=== PATIENT | female | born 1965 | race Caucasian/White ===

== ENCOUNTER 2016-06-25 07:25 | Inpatient (IN) | payer SELFPAY ==
[~2016-06-25] VITALS: Ht 167.6 cm; Wt 120.4 kg
[~2016-06-25 07:25] MED LIST: ASPI325T4 PO; ATEN25TA PO; DABI150C PO; DOCU-27 PO; LORA1TAB PO; MECL25TA3 PO; METF500T9 PO; MORP30TA83 PO; PARO30TA3 PO; PARO40TA3 PO; POLY17PO5 PO; PROC10TA57 PO; SIMV40TA3 PO; ZOLP10TA PO
[2016-06-25] MEDS ORDERED: FENTANYL PF 100 MCG/2 ML VIAL. IV PRN ×2 (07:45→09:30)
[2016-06-25] MEDS ORDERED: IV NORMAL SALINE 1000ML BAG 1,000 ML IV ONE (07:45)
[2016-06-25] MEDS ORDERED: FENTANYL PF 100 MCG/2 ML VIAL. IV ONE (07:45)
[2016-06-25 08:29] LABS: BASO # 0.1 x10^3/uL (0.0-0.2); BASO % 1 % (0-3); EOS % 2 % (0-3); HEMATOCRIT 41.9 % (36.0-47.0); HEMOGLOBIN 13.9 g/dL (12.0-15.5); LYMPH # 1.6 x10^3/uL (1.0-4.8); LYMPH % 12 % (24-48); MEAN CORPUSCULAR HEMOGLOBIN 28 pg (25-35); MEAN CORPUSCULAR HGB CONC 33 g/dL (31-37); MEAN CORPUSCULAR VOLUME 84 fL (79-100); MONO % 4 % (0-9); NEUT % 81 % (31-73); PLATELET COUNT 363 x10^3/uL (140-400); RED BLOOD COUNT 5.01 x10^6/uL (3.50-5.40); WHITE BLOOD COUNT 13.9 x10^3/uL (4.0-11.0)
[2016-06-25 08:35] LABS: CALCIUM 9.3 mg/dL (8.5-10.1); GFR 58.5; POTASSIUM 4.3 mmol/L (3.5-5.1)
[2016-06-25 08:41] LABS: ALBUMIN 3.9 g/dL (3.4-5.0); ALBUMIN/GLOBULIN RATIO 1.3 (1.0-1.7); TOTAL BILIRUBIN 0.5 mg/dL (0.2-1.0)
--- NOTE | 2016-06-25 08:41 | PHYS DOC ---
Past Medical History Past Medical History: Anxiety, Depression, Diabetes-Type II, DVT, High Cholesterol, Hypertension, Other Additional Past Medical Histor: OSTEOMYELITIS, PE Past Surgical History: No Surgical History, Appendectomy, Other Additional Past Surgical Histo: VEIN ABLATION Alcohol Use: None Drug Use: None Adult General Chief Complaint Chief Complaint: LOWER EXT PAIN HPI HPI Patient is a 51 year old female who drove herself to the emergency department with the complaint of severe pain in the left leg from a chronic wound. The patient has had a history of a chronic wound on the lower left leg, had previously been treated in the wound clinic and had wraps, it had almost healed , she lost her medical insurance and has not been able to follow-up, she recently got a new job and is waiting to get medical insurance again. She has not had follow-up of the wound in some time. It has been worsening and this morning she is having severe pain. She took 800 mg of ibuprofen 4 hours ago and another 800 mg 2 hours ago and it is not helping at all. Patient has been out of her medications due to not having insurance for "a few months". She was previously taking metoprolol 25 mg twice a day, metformin, and Xarelto. Patient has a history of hypertension, diabetes, history of blood clots in both legs and pulmonary emboli. She does have a vena cava filter. The patient's complaint at this time is of severe pain in her left leg wound. The pain has never been this bad before. It's characterized as sharp and stabbing. She's had it for a few days but it is worse this morning. 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 PCP Dr. Ruvalcaba Review of Systems Review of Systems Constitutional: Denies fever or chills [] Eyes: Denies change in visual acuity, redness, or eye pain [] HENT: Denies nasal congestion or sore throat [] Respiratory: Denies cough or shortness of breath [] Cardiovascular: Denies chest pain GI: Denies abdominal pain, nausea, vomiting, bloody stools or diarrhea [] : Denies dysuria or hematuria [] Musculoskeletal: Denies back pain or joint pain [] Integument: As in history of present illness Neurologic: Denies headache, focal weakness or sensory changes [] Current Medications Current Medications Current Medications Medications (Trade) Dose Ordered Sig/Lili Start Time Stop Time Status Last Admin Dose Admin Fentanyl Citrate (Fentanyl 2ml Vial) 50 mcg PRN Q1HR PRN 06/25/16 09:30 06/26/16 09:29 Fentanyl Citrate 100 mcg 100 mcg 1X ONCE 06/25/16 07:45 06/25/16 07:48 DC 06/25/16 07:54 100 MCG Sodium Chloride (Iv Sodium Chloride 0.9% 1000ml Bag) 1,000 ml @ 125 mls/hr 1X ONCE 06/25/16 07:45 06/25/16 15:44 06/25/16 07:52 125 MLS/HR Allergies Allergies Allergies Coded Allergies Type Severity Reaction Last Updated Verified ibuprofen Allergy Severe CAUSES RENAL FAILURE 09/15/15 Yes clindamycin Allergy Intermediate Hives 09/15/15 Yes tramadol Allergy Intermediate Hives 09/15/15 Yes Physical Exam Physical Exam Constitutional: Well developed, well nourished, alert, mentating normally, crying loudly. HENT: Normocephalic, atraumatic, bilateral external ears normal, nose normal. [] Eyes: conjunctiva normal, no discharge. [] Neck: Normal range of motion, no stridor. [] Cardiovascular:Heart rate regular rhythm, no murmur [] Lungs & Thorax: Bilateral breath sounds clear to auscultation [] Abdomen: soft, nondistended, no tenderness, no masses, no pulsatile masses. [] Skin: Warm, dry, no erythema, no rash. [] Extremities: Left lower extremity: On the lateral aspect of the lower leg, just above the ankle, there is a large, deep, chronic-appearing ulcer that is covered with granulation type yellow material and surrounded with a small ring of erythema. It appears to be a chronic ulcer that does not appear acutely cellulitic but is significantly deep. Neurologic: Alert and oriented X 3, normal motor function, normal sensory function, no focal deficits noted. [] Current Patient Data Vital Signs Vital Signs Date Time Temp Pulse Resp B/P Pulse Ox O2 Delivery O2 Flow Rate FiO2 06/25/16 07:32 98.4 117 18 173/116 98 Room Air 98.4 Lab Values Laboratory Tests Test 06/25/16 07:50 White Blood Count 13.9x10^3/uL (4.0-11.0) H Red Blood Count 5.01x10^6/uL (3.50-5.40) Hemoglobin 13.9g/dL (12.0-15.5) Hematocrit 41.9% (36.0-47.0) Mean Corpuscular Volume 84fL (79-100) Mean Corpuscular Hemoglobin 28pg (25-35) Mean Corpuscular Hemoglobin Concent 33g/dL (31-37) Red Cell Distribution Width 15.0% (11.5-14.5) H Platelet Count 363x10^3/uL (140-400) Neutrophils (%) (Auto) 81% (31-73) H Lymphocytes (%) (Auto) 12% (24-48) L Monocytes (%) (Auto) 4% (0-9) Eosinophils (%) (Auto) 2% (0-3) Basophils (%) (Auto) 1% (0-3) Neutrophils # (Auto) 11.3x10^3uL (1.8-7.7) H Lymphocytes # (Auto) 1.6x10^3/uL (1.0-4.8) Monocytes # (Auto) 0.6x10^3/uL (0.0-1.1) Eosinophils # (Auto) 0.3x10^3/uL (0.0-0.7) Basophils # (Auto) 0.1x10^3/uL (0.0-0.2) Sodium Level 142mmol/L (136-145) Potassium Level 4.3mmol/L (3.5-5.1) Chloride Level 105mmol/L (98-107) Carbon Dioxide Level 24mmol/L (21-32) Anion Gap 13 (6-14) Blood Urea Nitrogen 18mg/dL (7-20) Creatinine 1.0mg/dL (0.6-1.0) Estimated GFR (Cockcroft-Gault) 58.5 BUN/Creatinine Ratio 18 (6-20) Glucose Level 117mg/dL (70-99) H Lactic Acid Level 1.3mmol/L (0.4-2.0) Calcium Level 9.3mg/dL (8.5-10.1) Total Bilirubin 0.5mg/dL (0.2-1.0) Aspartate Amino Transferase (AST) 18U/L (15-37) Alanine Aminotransferase (ALT) 21U/L (14-59) Alkaline Phosphatase 64U/L (46-116) Total Protein 7.0g/dL (6.4-8.2) Albumin 3.9g/dL (3.4-5.0) Albumin/Globulin Ratio 1.3 (1.0-1.7) Laboratory Tests 06/25/16 07:50 Laboratory Tests 06/25/16 07:50 EKG EKG [] Radiology/Procedures Radiology/Procedures [] Course & Med Decision Making Course & Med Decision Making Pertinent Labs and Imaging studies reviewed. (See chart for details) 51-year-old female presents with a chronic ulcer to the left lower leg, complaining of severe pain. I discussed with the patient that we will get her pain under control with IV pain medications, but she did drive herself to the ED , and it appears that she will likely need to be admitted but under no circumstances will she be able to drive after ED treatment and she is agreeable to that. IV pain medicines were given, labs obtained. Patient were comfortable after IV fentanyl. White count is a little elevated consistent with inflammation/cellulitis. I discussed with the patient that we need to admit her for wound care and she is agreeable to that. I spoke with Dr. Chavez, water pollution control inspector for hospital medicine. He will admit the patient. I wrote bridge orders. [] Dragon Disclaimer Dragon Disclaimer This electronic medical record was generated, in whole or in part, using a voice recognition dictation system. Departure Departure Impression: Primary Impression: Cellulitis of left leg without foot Additional Impression: Non-pressure chronic ulcer of left calf with fat layer exposed Disposition: ADMITTED INPATIENT Admitting Physician: Stanley Chavez Condition: STABLE Referrals: JESSICA RUVALCABA MD (PCP) Problem Qualifiers ARIAN SIEGEL MD Jun 25, 2016 08:41
--- NOTE | 2016-06-25 09:37 | ACF ---
Admission Forms Criteria CELLULITIS Clinical Indications for Admission to Inpatient Care (Place 'X' for any and all applicable criteria): Admission is indicated for ANY ONE of the following(1)(2)(3)(4)(5): [ ]I. Limb-threatening infection [ ]II. High-risk comorbid condition as indicated by ANY ONE of the following: [ ]a) Uncontrolled diabetes (eg, HbA1c greater than 10% (0.1)) [ ]b) Cirrhosis [ ]c) Neutropenia [ ]d) Asplenia [ ]e) Immunosuppression [ ]f) Symptomatic heart failure [ ]III. Failure of outpatient therapy as indicated by ALL of the following: [ ]a) Progression or no improvement after adequate trial (minimum of 48 hours, with longer period for stable lower extremity infection) [ ]b) Adequate antibiotic regimen as indicated by use of ANY ONE of the following: [ ]i) First-generation cephalosporin (e.g., cephalexin) [ ]ii) Antistaphylococcal penicillin (e.g., dicloxacillin) [ ]iii) Penicillin-allergic patient regimen (clindamycin, extended-spectrum fluoroquinolone, or doxycycline) [ ]iv) Resistant organism (eg, methicillin-resistant Staphylococcus aureus) regimen (6) [ ]c) Outpatient intravenous therapy regimen is not appropriate due to ANY ONE of the following. (7)(8)(9)(10): [ ]i) It was tried and was not successful (eg, progression of infection). [ ]ii) It is not available or cannot be arranged in a clinically appropriate time frame (e.g., the next day). [ ]iii) Clinical presentation (eg, acuity of infection, rapidity of progression, confirmed or suspected bacteremia) is judged to require ALL of the following: [ ]1) Immediate initiation of intravenous therapy ( eg, cannot wait for next day) [ ]2) Intensity of patient monitoring and observation (eg, vital sign measurement, checks for infection progression) that cannot be provided at other than inpatient level of care [ ]IV. Mental status changes [ ]V. Bacteremia [ ]. Hemodynamic instability [ ]VII. Suspected necrotizing soft tissue infection (e.g., gas in tissue)(11)( 12) [ ]VIII. Orbital infection (13)(14) [ ]IX. Associated surgical procedure (e.g., abscess drainage, debridement) not amenable to outpatient, emergency department, or observation care [ ]X. Cutaneous gangrene [ ]XI. High fever (temperature greater than 39.5 degrees C (103.1 degrees F) (oral)) not responsive to outpatient, emergency department, or observation care therapy [x ]XIII. Inpatient admission required rather than observation care (Also use Cellulitis: Observation Care as appropriate) because of ANY ONE of the following : [ ]a) Periorbital or perineal infection that is severe or worsening [x ]b) Severe pain requiring acute inpatient management [ ]c) IV fluid to replace significant ongoing (e.g., for over 24 hours) losses (greater than 3L/m2 per day) [ ]d) Compartment syndrome monitoring (17) [ ]e) Strict or protective (eg, laminar flow) isolation [ ]f) Urgent debridement or skin grafting [ ]g) Bone or joint debridement [ ]h) Immediate inpatient surgery [x ]i) Other condition, treatment or monitoring requiring inpatient admission Extended stay beyond goal length of stay may be needed for (1)(18): [ ]a) Necrotizing soft tissue infection or fasciitis [ ]b) Gram-negative infection [ ]c) Methicillin-resistant Staphylococcal aureus (MRSA) infection [ ]d) Peripheral venous insufficiency with cellulitis [ ]e) Extensive edema [ ]f) Sepsis or continued Hemodynamic instability [ ]g) Continued high fever or mental status change [ ]h) Bacteremia [ ]i) Active serious comorbid conditions ( eg, heart failure, renal insufficiency) The original [email or web address] content created by [email or web address] has been revised. The portions of the content which have been revised are identified through the use of italic text or in bold, and [facility] has neither reviewed nor approved the modified material. All other unmodified content is copyright [facility] [employer] [facility] Please see references footnoted in the original [facility] [employer] edition 2016 Admission Criteria Met?: Yes RENETTA GHOSH Jun 25, 2016 09:37
[2016-06-25] MEDS ORDERED: VANCOMYCIN 1GM IVPB FOR OMNI 250 ML IV ONE (09:45)
[2016-06-25 10:24] VITALS: BP 178/103
[2016-06-25] MEDS: MORPHINE SULFATE 2 MG/ML DISP.SYRIN. IV PRN ×3 (11:06→23:05)
[2016-06-25] MEDS ORDERED: MORPHINE ER 30 MG TABLET.ER PO PRN (13:00)
[2016-06-25] MEDS: POLYETHYLENE GLYCOL 3350 17 GM PACKET. PO SCH (13:00)
--- NOTE | 2016-06-25 14:07 | HP ---
ADMIT DATE: 06/25/2016 CHIEF COMPLAINT: Left lower extremity wound. HISTORY OF PRESENT ILLNESS: The patient is a pleasant middle-aged female who has chronic peripheral vascular disease from her diabetes. Basically, she has got a huge wound on her left calf. It has been occurring for 3 years. She has had multiple procedures and debridements. She initially presented to another facility, they called me from that ER. We have transferred ____ as a direct admit. We are going to be consulting Vascular Surgery and given her some IV antibiotics. PAST MEDICAL HISTORY: Chronic left calf lesion started 3 years ago, anxiety, depression, polypharmacy, diabetes, hyperlipidemia, DVT, hypertension, chronic anticoagulation, osteomyelitis, appendectomy, vein ablation. ALLERGIES: CLINDAMYCIN, IBUPROFEN AND ULTRAM. FAMILY HISTORY: Coronary artery disease. SOCIAL HISTORY: She does not drink, smoke or take drugs. MEDICATIONS: Reviewed, please refer to the MRAD. REVIEW OF SYSTEMS: GENERAL: No history of weight change, weakness or fevers. SKIN: No bruising, hair changes or rashes. EYES: No blurred, double or loss of vision. NOSE AND THROAT: No history of nosebleeds, hoarseness or sore throat. HEART: No history of palpitations, chest pain or shortness of breath on exertion. LUNGS: Denies cough, hemoptysis, wheezing or shortness of breath. GASTROINTESTINAL: Denies changes in appetite, nausea, vomiting, diarrhea or constipation. GENITOURINARY: No history of frequency, urgency, hesitancy or nocturia. NEUROLOGIC: Denies history of numbness, tingling, tremor or weakness. PSYCHIATRIC: No history of panic, anxiety or depression. ENDOCRINE: No history of heat or cold intolerance, polyuria or polydipsia. EXTREMITIES: She complains of left calf wound. PHYSICAL EXAMINATION: VITAL SIGNS: Temperature afebrile, pulse 80, respirations 18, blood pressure 178/103. GENERAL: She is alert, cooperative, very anxious. HEART: Normal S1, S2. LUNGS: Clear. ABDOMEN: Soft, positive bowel sounds, a little obese. EXTREMITIES: The left calf has massive wound. Please see the pictures. ENDOCRINE: No thyromegaly. LYMPHATICS: No cervical nodes. HEMATOPOIETIC: No bruising. VASCULAR: She has slow capillary refill on the left foot. She also has decreased pretibial and pedal pulses. LABORATORY DATA: Pending. ASSESSMENT AND PLAN: Severe peripheral vascular disease with acute on chronic wound of the left calf, very concerned about this. We are going to do some wound care, give her IV antibiotics. Consult Infectious Disease, consult Vascular Surgery, resume her home meds. PROGNOSIS: Guarded. LUISL Terry MARTINO DO DR: SAMUEL/myra JOB#: [id number] / [id number]
[2016-06-25] MEDS: FLUOXETINE HCL 20 MG CAPSULE PO SCH (14:45)
[2016-06-25] MEDS: LORAZEPAM 1 MG TABLET. PO PRN (14:46)
[2016-06-25 15:00] VITALS: BP 180/88
[2016-06-25] MEDS: OXYCODONE/APAP 5/325 TABLET. PO PRN (16:58)
[2016-06-25] MEDS: ASPIRIN 325 MG TABLET PO SCH (17:00)
[2016-06-25] MEDS: DOCUSATE SODIUM 100 MG CAPSULE. PO SCH (17:00)
[2016-06-25] MEDS ORDERED: ANTI-COAG MONITOR BY PHARMACY. MC PRN (18:30)
[2016-06-25] MEDS ORDERED: VANCOMYCIN PER PHARMACY MC PRN (18:30)
--- NOTE | 2016-06-25 18:39 | PDOC ---
Provider Note Provider Note (please see full dictation) 51 yo female with recurrent left leg venous stasis ulcer. She has good distal pulses. Would continue local wound care with Aquacel AG (moistened with saline ) or antibiotic ointment. Would resume external compression. May start ALLY wraps to the left lower leg. She should f/u with the Wound Care Center. ERLIN GONCALVES MD Jun 25, 2016 18:39
[2016-06-25 19:00] VITALS: BP 136/76
[2016-06-25] MEDS ORDERED: VANCOMYCIN 2 GM in IV NORMAL SALINE 500ML BAG 500 ML IV ONE (20:00)
[2016-06-25] MEDS ORDERED: ATENOLOL 25 MG TABLET PO SCH (21:00)
[2016-06-25] MEDS: SIMVASTATIN 40 MG TABLET. PO SCH (21:15)
[2016-06-25] MEDS: DABIGATRAN ETEXILATE 150 MG CAPSULE. PO SCH (21:15)
[2016-06-25] MEDS: TEMAZEPAM 15 MG CAPSULE PO PRN (21:15)
[2016-06-25] MEDS: MORPHINE ER 30 MG TABLET.ER PO SCH (21:16)
[2016-06-25 23:07] VITALS: BP 131/69
[2016-06-26 03:03] VITALS: BP 149/85
[2016-06-26] MEDS: OXYCODONE/APAP 5/325 TABLET. PO PRN ×3 (04:56→15:02)
[2016-06-26 06:33] LABS: BASO # 0.1 x10^3/uL (0.0-0.2); BASO % 1 % (0-3); EOS % 3 % (0-3); HEMATOCRIT 36.1 % (36.0-47.0); HEMOGLOBIN 12.3 g/dL (12.0-15.5); LYMPH # 1.9 x10^3/uL (1.0-4.8); LYMPH % 17 % (24-48); MEAN CORPUSCULAR HEMOGLOBIN 28 pg (25-35); MEAN CORPUSCULAR HGB CONC 34 g/dL (31-37); MEAN CORPUSCULAR VOLUME 83 fL (79-100); MONO % 5 % (0-9); NEUT % 74 % (31-73); PLATELET COUNT 305 x10^3/uL (140-400); RED BLOOD COUNT 4.34 x10^6/uL (3.50-5.40); RED CELL DISTRIBUTION WIDTH 14.9 % (11.5-14.5); WHITE BLOOD COUNT 11.2 x10^3/uL (4.0-11.0)
[2016-06-26 07:00] VITALS: BP 144/85
[2016-06-26 07:08] LABS: CALCIUM 8.7 mg/dL (8.5-10.1); CREATININE 0.7 mg/dL (0.6-1.0); GFR 88.2; POTASSIUM 3.9 mmol/L (3.5-5.1)
[2016-06-26] MEDS ORDERED: VANCOMYCIN 1.75 GM in IV NORMAL SALINE 500ML BAG 500 ML IV SCH (08:00)
--- NOTE | 2016-06-26 08:44 | CONS ---
DATE OF CONSULTATION: 06/25/2016 CHIEF COMPLAINT: Left lower leg wound. HISTORY OF PRESENT ILLNESS: The patient is a 51-year-old female with hypertension, diabetes and history of chronic venous insufficiency, who presents with a recurrent ulcer on the lateral aspect of her left ankle. She has been previously evaluated by ____ and has had previous venous ablations done 1-2 to 2 years ago. She was previously followed through the [facility] and more recently with the [facility]. She saw Dr. Layne as recently as 08/2015. Around that time, the wound improved with an Unna boot compression dressing. Over the last several months, the wound has worsened. She reports that she has been wearing compression stockings. She has not had insurance coverage and subsequently did not follow up at the wound care center. She was admitted recently with worsening of her wound. She notes pain around the wound itself. PAST MEDICAL HISTORY: 1. Chronic venous insufficiency with venous stasis ulcer. 2. Diabetes. 3. Hyperlipidemia. 4. Hypertension. PAST SURGICAL HISTORY: 1. Appendectomy. 2. Previous cad programmer vein ablation by her report. I do not have those reports available. ALLERGIES: CLINDAMYCIN, IBUPROFEN AND ULTRAM. CURRENT MEDICATIONS: Please see detailed medication administration record for dosing details. SOCIAL HISTORY: She denies any smoking or alcohol use. REVIEW OF SYSTEMS: No recent fevers, chills, chest pain or shortness of breath. No nausea, vomiting or other GI symptoms. She has noted some generalized malaise. She denies any unilateral weakness, numbness, visual loss, speech changes, other TIA or stroke type symptoms. PHYSICAL EXAMINATION: GENERAL: This is an obese female in no acute distress. VITAL SIGNS: Temperature 98.1, pulse 92, blood pressure 180/88, respirations 18. NECK: Supple, no lymphadenopathy. CARDIOVASCULAR: Regular rhythm. ABDOMEN: Obese, soft, nontender. EXTREMITIES: She has palpable radial and posterior tibial pulses bilaterally. Her right dorsalis pedis pulses also easily palpable. She has no areas of skin breakdown on her right foot or lower leg. She has a large ulcer on the lateral aspect of her left lower leg with an Aquacel Ag dressing in place. This extends to the deep subcutaneous tissue. There is mild amount of fibrinous debris in this area. Minimal to no surrounding erythema at this time. LABORATORY DATA: Significant for a white blood cell of 13.9, hemoglobin 13.9, platelet count of 363. Sodium 142, potassium 4.3, BUN 18, creatinine 1.0, glucose 117. IMPRESSION: 1. Left lateral lower leg ulcer, most consistent with chronic recurrent venous stasis ulcer. 2. Obesity. 3. Hypertension. RECOMMENDATIONS: 1. I had a long discussion with her as to the etiology of these venous stasis ulcers. She not only needs good local wound care, but also good external compression with leg elevation as much as possible. While in the hospital, I have encouraged her to remain supine with her leg elevated above the level of her heart. She would also benefit from compressive Mayo wrap on her left leg in addition to the topical dressings. 2. Would continue local wound care with Aquacel Ag while in the hospital. She may either continue this as an outpatient or switch to antibiotic ointment and topical dressings. I would encourage her as an outpatient to gently wash the wound with soap and water prior to applying new dressing. 3. Would likely benefit from followup in the Wound Care Center for medicated compression dressing such as an Unna boot or Profore dressing. 4. She may also benefit from reevaluation with comprehensive venous duplex scan. She has had previous ablations, but she might still be a candidate for other interventions. This can wait until she has regained insurance coverage, however. 5. I have given her our contact information. She may follow up with us electively as an outpatient. ERLIN GONCALVES MD DR: TIERA/myra JOB#: [id number] / [id number] JESSICA Kerr MD [facility]
[2016-06-26] MEDS: FLUOXETINE HCL 20 MG CAPSULE PO SCH (09:44)
[2016-06-26] MEDS: DOCUSATE SODIUM 100 MG CAPSULE. PO SCH (09:44)
[2016-06-26] MEDS: ASPIRIN 325 MG TABLET PO SCH (09:45)
[2016-06-26] MEDS: LORAZEPAM 1 MG TABLET. PO PRN (09:45)
[2016-06-26] MEDS: POLYETHYLENE GLYCOL 3350 17 GM PACKET. PO SCH (09:45)
[2016-06-26] MEDS: DABIGATRAN ETEXILATE 150 MG CAPSULE. PO SCH ×2 (09:45→22:42)
[2016-06-26] MEDS: ATENOLOL 25 MG TABLET. PO SCH ×2 (09:45→22:43)
[2016-06-26] MEDS: MORPHINE SULFATE 2 MG/ML DISP.SYRIN. IV PRN (09:50)
[2016-06-26] MEDS: MORPHINE ER 30 MG TABLET.ER PO SCH ×2 (09:51→22:43)
[2016-06-26 11:00] VITALS: BP 149/92
[2016-06-26 15:00] VITALS: BP 145/89
[2016-06-26] MEDS: GABAPENTIN 100 MG CAPSULE. PO SCH ×2 (15:02→22:43)
--- NOTE | 2016-06-26 15:38 | PDOC ---
PROGRESS NOTES Chief Complaint Chief Complaint cc: leg ulcer, pain A/P 1. Left lateral lower leg ulcer,chronic venous ulcer, non healing. 2. Obesity. 3. Hypertension 4. HLP 5. Neuropathy peripheral 6. HX PE Plan Pain control with [place] and Morphine Oral Xarelto Gabapentin for peripheral neuropathy Wound care Vascular surgery Leg elevation Local wound care supportive care . History of Present Illness History of Present Illness pain 5/10, no fever neuropathy Vitals Vitals Vital Signs Date Time Temp Pulse Resp B/P Pulse Ox O2 Delivery O2 Flow Rate FiO2 06/26/16 15:02 Room Air 06/26/16 13:51 94 06/26/16 11:00 97.9 75 18 149/92 97.9 Physical Exam General: Alert, Oriented X3, Cooperative Heart: Normal S1, Normal S2 Lungs: Clear Abdomen: Normal bowel sounds, Soft Extremities: Other (non helaing ulcer) Labs LABS Laboratory Tests Test 06/26/16 06:20 White Blood Count 11.2x10^3/uL (4.0-11.0) Red Blood Count 4.34x10^6/uL (3.50-5.40) Hemoglobin 12.3g/dL (12.0-15.5) Hematocrit 36.1% (36.0-47.0) Mean Corpuscular Volume 83fL (79-100) Mean Corpuscular Hemoglobin 28pg (25-35) Mean Corpuscular Hemoglobin Concent 34g/dL (31-37) Red Cell Distribution Width 14.9% (11.5-14.5) Platelet Count 305x10^3/uL (140-400) Neutrophils (%) (Auto) 74% (31-73) Lymphocytes (%) (Auto) 17% (24-48) Monocytes (%) (Auto) 5% (0-9) Eosinophils (%) (Auto) 3% (0-3) Basophils (%) (Auto) 1% (0-3) Neutrophils # (Auto) 8.3x10^3uL (1.8-7.7) Lymphocytes # (Auto) 1.9x10^3/uL (1.0-4.8) Monocytes # (Auto) 0.6x10^3/uL (0.0-1.1) Eosinophils # (Auto) 0.3x10^3/uL (0.0-0.7) Basophils # (Auto) 0.1x10^3/uL (0.0-0.2) Sodium Level 143mmol/L (136-145) Potassium Level 3.9mmol/L (3.5-5.1) Chloride Level 107mmol/L (98-107) Carbon Dioxide Level 26mmol/L (21-32) Anion Gap 10 (6-14) Blood Urea Nitrogen 15mg/dL (7-20) Creatinine 0.7mg/dL (0.6-1.0) Estimated GFR (Cockcroft-Gault) 88.2 Glucose Level 119mg/dL (70-99) Calcium Level 8.7mg/dL (8.5-10.1) Assessment and Plan Assessmemt and Plan Problems Medical Problems: (1) Cellulitis of left leg without foot Status: Acute (2) Non-pressure chronic ulcer of left calf with fat layer exposed Status: Acute Problems: Comment Review of Relevant I have reviewed the following items claribel (where applicable) has been applied. Labs Laboratory Tests Test 06/25/16 07:50 06/25/16 13:30 06/26/16 06:20 White Blood Count 13.9x10^3/uL (4.0-11.0) 11.2x10^3/uL (4.0-11.0) Red Blood Count 5.01x10^6/uL (3.50-5.40) 4.34x10^6/uL (3.50-5.40) Hemoglobin 13.9g/dL (12.0-15.5) 12.3g/dL (12.0-15.5) Hematocrit 41.9% (36.0-47.0) 36.1% (36.0-47.0) Mean Corpuscular Volume 84fL (79-100) 83fL (79-100) Mean Corpuscular Hemoglobin 28pg (25-35) 28pg (25-35) Mean Corpuscular Hemoglobin Concent 33g/dL (31-37) 34g/dL (31-37) Red Cell Distribution Width 15.0% (11.5-14.5) 14.9% (11.5-14.5) Platelet Count 363x10^3/uL (140-400) 305x10^3/uL (140-400) Neutrophils (%) (Auto) 81% (31-73) 74% (31-73) Lymphocytes (%) (Auto) 12% (24-48) 17% (24-48) Monocytes (%) (Auto) 4% (0-9) 5% (0-9) Eosinophils (%) (Auto) 2% (0-3) 3% (0-3) Basophils (%) (Auto) 1% (0-3) 1% (0-3) Neutrophils # (Auto) 11.3x10^3uL (1.8-7.7) 8.3x10^3uL (1.8-7.7) Lymphocytes # (Auto) 1.6x10^3/uL (1.0-4.8) 1.9x10^3/uL (1.0-4.8) Monocytes # (Auto) 0.6x10^3/uL (0.0-1.1) 0.6x10^3/uL (0.0-1.1) Eosinophils # (Auto) 0.3x10^3/uL (0.0-0.7) 0.3x10^3/uL (0.0-0.7) Basophils # (Auto) 0.1x10^3/uL (0.0-0.2) 0.1x10^3/uL (0.0-0.2) Sodium Level 142mmol/L (136-145) 143mmol/L (136-145) Potassium Level 4.3mmol/L (3.5-5.1) 3.9mmol/L (3.5-5.1) Chloride Level 105mmol/L (98-107) 107mmol/L (98-107) Carbon Dioxide Level 24mmol/L (21-32) 26mmol/L (21-32) Anion Gap 13 (6-14) 10 (6-14) Blood Urea Nitrogen 18mg/dL (7-20) 15mg/dL (7-20) Creatinine 1.0mg/dL (0.6-1.0) 0.7mg/dL (0.6-1.0) Estimated GFR (Cockcroft-Gault) 58.5 88.2 BUN/Creatinine Ratio 18 (6-20) Glucose Level 117mg/dL (70-99) 119mg/dL (70-99) Lactic Acid Level 1.3mmol/L (0.4-2.0) Calcium Level 9.3mg/dL (8.5-10.1) 8.7mg/dL (8.5-10.1) Total Bilirubin 0.5mg/dL (0.2-1.0) Aspartate Amino Transf (AST/SGOT) 18U/L (15-37) Alanine Aminotransferase (ALT/SGPT) 21U/L (14-59) Alkaline Phosphatase 64U/L (46-116) Total Protein 7.0g/dL (6.4-8.2) Albumin 3.9g/dL (3.4-5.0) Albumin/Globulin Ratio 1.3 (1.0-1.7) Nasal Screen MRSA (PCR) Negative (Negative) Laboratory Tests Test 06/26/16 06:20 White Blood Count 11.2x10^3/uL (4.0-11.0) Red Blood Count 4.34x10^6/uL (3.50-5.40) Hemoglobin 12.3g/dL (12.0-15.5) Hematocrit 36.1% (36.0-47.0) Mean Corpuscular Volume 83fL (79-100) Mean Corpuscular Hemoglobin 28pg (25-35) Mean Corpuscular Hemoglobin Concent 34g/dL (31-37) Red Cell Distribution Width 14.9% (11.5-14.5) Platelet Count 305x10^3/uL (140-400) Neutrophils (%) (Auto) 74% (31-73) Lymphocytes (%) (Auto) 17% (24-48) Monocytes (%) (Auto) 5% (0-9) Eosinophils (%) (Auto) 3% (0-3) Basophils (%) (Auto) 1% (0-3) Neutrophils # (Auto) 8.3x10^3uL (1.8-7.7) Lymphocytes # (Auto) 1.9x10^3/uL (1.0-4.8) Monocytes # (Auto) 0.6x10^3/uL (0.0-1.1) Eosinophils # (Auto) 0.3x10^3/uL (0.0-0.7) Basophils # (Auto) 0.1x10^3/uL (0.0-0.2) Sodium Level 143mmol/L (136-145) Potassium Level 3.9mmol/L (3.5-5.1) Chloride Level 107mmol/L (98-107) Carbon Dioxide Level 26mmol/L (21-32) Anion Gap 10 (6-14) Blood Urea Nitrogen 15mg/dL (7-20) Creatinine 0.7mg/dL (0.6-1.0) Estimated GFR (Cockcroft-Gault) 88.2 Glucose Level 119mg/dL (70-99) Calcium Level 8.7mg/dL (8.5-10.1) Microbiology 06/25/16 Blood Culture - Preliminary, Resulted NO GROWTH AFTER 1 DAY 06/25/16 Gram Stain - Final, Complete Medications Current Medications Fentanyl Citrate 100 mcg 100 mcg 1X ONCE IV Last administered on 06/25/16 07: 54; Start 06/25/16 at 07:45; Stop 06/25/16 at 07:48; Status DC Sodium Chloride (Iv Sodium Chloride 0.9% 1000ml Bag) 1,000 ml @ 125 mls/hr 1X ONCE IV Last administered on 06/25/16 07:52; Start 06/25/16 at 07:45; Stop at 15:44; Status DC Fentanyl Citrate (Fentanyl 2ml Vial) 50 mcg PRN Q15MIN PRN IV PAIN GREATER THAN 3/10 Last administered on 06/25/16 09:08; Start 06/25/16 at 07:45; Stop at 07:44; Status DC Fentanyl Citrate 50 mcg 50 mcg PRN Q1HR PRN IV PAIN; Start 06/25/16 at 09:30; Stop 06/26/16 at 09:29; Status DC Vancomycin HCl 250 ml @ 250 mls/hr 1X ONCE IV Last administered on 06/25/16 10:00; Start 06/25/16 at 09:45; Stop 06/25/16 at 10:44; Status DC Morphine Sulfate 4 mg PRN Q3HRS PRN IV PAIN Last administered on 06/26/16 09: 50; Start 06/25/16 at 11:00 Aspirin (Sveta Aspirin) 325 mg DAILY PO Last administered on 06/26/16 09:45; Start 06/25/16 at 13:00 Atenolol (Tenormin) 25 mg BID PO Last administered on 06/25/16 21:17; Start at 21:00; Stop 06/26/16 at 05:23; Status DC Dabigatran (Pradaxa) 150 mg BID PO Last administered on 06/26/16 09:45; Start 06/25/16 at 21:00 Docusate Sodium (Colace) 100 mg DAILY PO Last administered on 06/26/16 09:44; Start 06/25/16 at 13:00 Lorazepam (Ativan) 1 mg PRN TID PRN PO ANXIETY / AGITATION Last administered on 06/26/16 09:45; Start 06/25/16 at 13:00 Morphine Sulfate (Ms Contin) 30 mg TID PRN PO PAIN; Start 06/25/16 at 13:00; Status UNV Polyethylene Glycol (miraLAX PACKET) 17 gm DAILY PO Last administered on 09:45; Start 06/25/16 at 13:00 Simvastatin (Zocor) 40 mg QHS PO Last administered on 06/25/16 21:15; Start at 21:00 Fluoxetine HCl (Prozac) 20 mg DAILY PO Last administered on 06/26/16 09:44; Start 06/25/16 at 13:00 Temazepam (Restoril) 15 mg PRN QHS PRN PO INSOMNIA Last administered on 21:15; Start 06/25/16 at 13:00 Morphine Sulfate (Ms Contin) 30 mg BID PO Last administered on 06/26/16 09:51 ; Start 06/25/16 at 21:00 Oxycodone/ Acetaminophen (Percocet 5/325) 1 tab PRN Q4HRS PRN PO PAIN Last administered on 06/26/16 15:02; Start 06/25/16 at 16:30 Vancomycin HCl 1 each 1 each PRN DAILY PRN MC SEE COMMENTS Last administered on 06/25/16 18:24; Start 06/25/16 at 18:30; Stop 06/26/16 at 09:31; Status DC Vancomycin HCl 2 gm/Sodium Chloride 500 ml @ 250 mls/hr 1X ONCE IV Last administered on 06/25/16 21:15; Start 06/25/16 at 20:00; Stop 06/25/16 at 21:59 ; Status DC Vancomycin HCl/ Sodium Chloride (Iv Sodium Chloride 0.9% 500ml Bag) 500 ml @ 250 mls/hr Q12H IV ; Start 06/26/16 at 08:00; Stop 06/26/16 at 09:31; Status DC Vancomycin HCl 1 each 1X ONCE MC ; Start 06/27/16 at 07:30; Stop 06/27/16 at 07 :30; Status DC Info (Anti-Coagulation Monitoring By Pharmacy) 1 each PRN DAILY PRN MC SEE COMMENTS; Start 06/25/16 at 18:30 Atenolol (Tenormin) 25 mg BID PO Last administered on 06/26/16 09:45; Start at 09:00 Gabapentin (Neurontin) 100 mg TID PO Last administered on 06/26/16 15:02; Start 06/26/16 at 14:00 Active Scripts Active Reported Aspirin 325 Mg Tablet 1 Tab PO DAILY Colace (Docusate Sodium) 100 Mg Capsule 100 Mg PO DAILY Miralax (Polyethylene Glycol 3350) 17 Gm Powd.pack 1 Packet PO DAILY Pradaxa (Dabigatran Etexilate Mesylate) 150 Mg Capsule 1 Cap PO BID Ms Contin (Morphine Sulfate) 30 Mg Tablet.er 1 Tab PO TID PRN Meclizine Hcl 25 Mg Tablet 1 Tab PO TID PRN Compazine (Prochlorperazine Maleate) 10 Mg Tablet 10 Mg PO 1X PRN PRN Ambien (Zolpidem Tartrate) 10 Mg Tablet 1 Tab PO QHS Lorazepam 1 Mg Tablet 1 Tab PO TID PRN Paroxetine Hcl 30 Mg Tablet 2 Tab PO DAILY Simvastatin 40 Mg Tablet 1 Tab PO QHS Atenolol 25 Mg Tablet 1 Tab PO BID Metformin Hcl Er (Metformin Hcl) 500 Mg Tab.er.24h 1 Tab PO BID Vitals/I & O Vital Sign - Last 24 Hours 06/25/16 06/25/16 06/25/16 06/25/16 17:58 19:00 20:00 21:16 Temp 97.9 97.9 Pulse 83 Resp 18 16 B/P 136/76 Pulse Ox 96 98 98 O2 Delivery Room Air Room Air Room Air 3/29/17 3/29/17 3/29/17 3/29/17 21:17 23:05 23:07 23:35 Temp 98.3 98.3 Pulse 83 78 Resp B/P 136/76 131/69 Pulse Ox 94 O2 Delivery Room Air Room Air 06/26/16 06/26/16 06/26/16 06/26/16 03:03 04:56 05:56 07:00 Temp 97.8 97.2 97.8 97.2 Pulse 64 68 Resp B/P 149/85 144/85 Pulse Ox 98 93 O2 Delivery Room Air Room Air Room Air 06/26/16 06/26/16 06/26/16 06/26/16 09:45 09:50 09:51 10:20 Pulse 68 B/P 144/85 Pulse Ox 93 93 O2 Delivery Room Air Room Air Room Air 06/26/16 06/26/16 06/26/16 06/26/16 11:00 12:15 13:51 15:02 Temp 97.9 97.9 Pulse 75 Resp 18 B/P 149/92 Pulse Ox 94 94 O2 Delivery Room Air Room Air Room Air Room Air Intake and Output 06/25/16 06/25/16 06/26/16 15:00 23:00 07:00 Intake Total 1402 ml 720 ml Balance 1402 ml 720 ml LU DRAPER MD Jun 26, 2016 15:38
[2016-06-26 19:39] VITALS: BP 156/91
[2016-06-26] MEDS: SIMVASTATIN 40 MG TABLET. PO SCH (22:42)
[2016-06-26] MEDS: TEMAZEPAM 15 MG CAPSULE PO PRN (22:43)
[2016-06-26 23:17] VITALS: BP 126/79
--- NOTE | 2016-06-27 00:53 | CONS ---
DATE OF CONSULTATION: 06/26/2016 REQUESTING PHYSICIAN: Stanley Chavez DO REASON FOR CONSULTATION: Infected ulcer on the leg. HISTORY OF PRESENT ILLNESS: This is a 51-year-old female with venous insufficiency who has had venous insufficiency ulcer, which was healed and it broke open now for almost 3 years. The patient came in because of the pain in the leg. Denies any fever, denies any nausea, vomiting, diarrhea. Denies any chest pain, shortness of breath, abdominal pain. PAST MEDICAL HISTORY: Positive for venous insufficiency with venous insufficiency ulcer on the left leg. The patient also has depression, diabetes, hyperlipidemia, hypertension, chronic pain problem and has had vein ablation done. SOCIAL HISTORY: Negative for smoking, alcohol or drug use. ALLERGIES: Listed as allergic to CLINDAMYCIN, TRAMADOL AND IBUPROFEN. CURRENT MEDICATIONS: Reviewed. The patient is on vancomycin. REVIEW OF SYSTEMS: As per HPI. All other systems reviewed were negative. PHYSICAL EXAMINATION: GENERAL: Alert, oriented female, not in distress. VITAL SIGNS: Stable, afebrile. HEENT: NAD. NECK: Supple, no JVD, no lymphadenopathy. LUNGS: Clear. CARDIOVASCULAR: S1, S2 regular. ABDOMEN: Benign. EXTREMITIES: Right lower extremity is unremarkable. Left lower extremity has a large venous insufficiency ulcer superficial ulcer present with minimal drainage and minimal surrounding edema. NEUROLOGIC: Intact. LABORATORY DATA: White count is 11.2. BUN and creatinine is normal. Blood culture and wound culture is so far negative. Lower extremity MRI done for some reason, which was negative. IMPRESSION: 1. Venous insufficiency ulcer, left lower extremity. 2. Diabetes. 3. Hypertension. 4. Polypharmacy. Recommend discontinue vancomycin, would use p.o. Augmentin. The patient can be discharged as well as Infectious Disease is concerned. The patient has been given detailed instruction on support stockings, leg elevation and/or Unna boot, etc. that she needs to do and continue to do at the time of transport. Thank you very much, Dr. Chavez for getting me opportunity to participate in this patient's care. PRESLEY SAUCEDO MD DR: MAN/myra JOB#: [id number] / [id number]
[2016-06-27 03:17] VITALS: BP 119/84
[2016-06-27] MEDS: OXYCODONE/APAP 5/325 TABLET. PO PRN ×3 (04:02→13:33)
[2016-06-27 04:59] LABS: BASO # 0.1 x10^3/uL (0.0-0.2); BASO % 1 % (0-3); EOS % 4 % (0-3); HEMATOCRIT 38.8 % (36.0-47.0); HEMOGLOBIN 12.7 g/dL (12.0-15.5); LYMPH # 2.2 x10^3/uL (1.0-4.8); LYMPH % 21 % (24-48); MEAN CORPUSCULAR HEMOGLOBIN 28 pg (25-35); MEAN CORPUSCULAR HGB CONC 33 g/dL (31-37); MEAN CORPUSCULAR VOLUME 86 fL (79-100); MONO % 5 % (0-9); NEUT % 70 % (31-73); PLATELET COUNT 299 x10^3/uL (140-400); RED BLOOD COUNT 4.51 x10^6/uL (3.50-5.40); RED CELL DISTRIBUTION WIDTH 14.8 % (11.5-14.5); WHITE BLOOD COUNT 10.9 x10^3/uL (4.0-11.0)
[2016-06-27 05:25] LABS: CALCIUM 8.8 mg/dL (8.5-10.1); CREATININE 0.8 mg/dL (0.6-1.0); GFR 75.6; POTASSIUM 4.3 mmol/L (3.5-5.1)
[2016-06-27 07:00] VITALS: BP 108/63
[2016-06-27] MEDS ORDERED: FLUOXETINE HCL 20 MG CAPSULE. ONE (08:48)
[2016-06-27] MEDS: ASPIRIN 325 MG TABLET PO SCH (09:04)
[2016-06-27] MEDS: DABIGATRAN ETEXILATE 150 MG CAPSULE. PO SCH (09:04)
[2016-06-27] MEDS: DOCUSATE SODIUM 100 MG CAPSULE. PO SCH (09:04)
[2016-06-27] MEDS: FLUOXETINE HCL 20 MG CAPSULE PO SCH (09:04)
[2016-06-27] MEDS: POLYETHYLENE GLYCOL 3350 17 GM PACKET. PO SCH (09:04)
[2016-06-27] MEDS: GABAPENTIN 100 MG CAPSULE. PO SCH (09:05)
[2016-06-27] MEDS: ATENOLOL 25 MG TABLET. PO SCH (09:05)
[2016-06-27] MEDS: MORPHINE ER 30 MG TABLET.ER PO SCH (09:05)
[2016-06-27 11:00] VITALS: BP 142/113
[2016-06-27] MEDS ORDERED: HYDR-965 PO (11:42)
[2016-06-27] MEDS ORDERED: MORP30TA3 PO (11:42)
[2016-06-27] MEDS ORDERED: GABA-585 PO (11:43)
--- NOTE | 2016-06-30 10:25 | PDOC3 ---
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 Left lateral lower leg ulcer,chronic venous ulcer, non healing. 2. Obesity. 3. Hypertension 4. HLP 5. Neuropathy peripheral 6. HX PE Brief Hospital Course Ms. Chaney is a 51 old female who presented with intractable pain due to left lower extremity non healing venous ulcer, she was evaluated by Dr Ryder and Dr Mullins.Pt recommend to have wound care, leg elevation, unna boots, and compression stocking. Her pain was controlled with IV narcotics, later medications changed to Oral medications. Pt has been sent home in stable condition. Exam GENERAL: No apparent distress. Alert and oriented. HEENT: Head normocephalic, atraumatic. NECK: Supple LUNGS: Clear to auscultation. HEART: RRR, S1, S2 present, pulses intact ABDOMEN: Soft, positive bowel sounds. Disposition/Orders: D/C to Home CONDITION AT DISCHARGE: Stable Diet: Regular Scheduled Aspirin (Aspirin) 1 TAB PO DAILY (Reported) Atenolol (Atenolol) 1 TAB PO BID (Reported) Dabigatran Etexilate Mesylate (Pradaxa) 1 CAP PO BID (Reported) Docusate Sodium (Colace) 100 MG PO DAILY (Reported) Gabapentin (Gabapentin) 100 MG PO TID Metformin Hcl (Metformin Hcl Er) 1 TAB PO BID (Reported) Morphine Sulfate (Morphine Sulfate Er) 30 MG PO BID Paroxetine Hcl (Paroxetine Hcl) 2 TAB PO DAILY (Reported) Polyethylene Glycol 3350 (Miralax) 1 PACKET PO DAILY (Reported) Simvastatin (Simvastatin) 1 TAB PO QHS (Reported) Zolpidem Tartrate (Ambien) 1 TAB PO QHS (Reported) Scheduled PRN Hydrocodone/Apap 7.5-325 ([place] 7.5-325 Tablet) 1 TAB PO PRN BID PRN PRN PAIN Lorazepam (Lorazepam) 1 TAB PO TID PRN PRN ANXIETY / AGITATION (Reported) Meclizine Hcl (Meclizine Hcl) 1 TAB PO TID PRN PRN DIZZINESS (Reported) Morphine Sulfate Er (Ms Contin) 1 TAB PO TID PRN PRN PAIN (Reported) Prochlorperazine Maleate (Compazine) 10 MG PO 1X PRN PRN PRN NAUSEA (Reported) FOLLOW UP APPOINTMENT: with pcp and wound care Time Spent Total time spent with patient 34 minutes for coordination of care, counseling, and education. LU DRAPER MD Jun 30, 2016 10:25
== END 2016-06-27 14:19 | disposition home or self-care (01) | DRG 74 ==
LOC: ER 07:25 → 4 NORTH 09:15
PROVIDERS: ADMIT Internal Medicine; ATTEND Internal Medicine
DX: E11.42 Type 2 diabetes mellitus with diabetic polyneuropathy (principal); Z68.41 Body mass index [BMI] 40.0-44.9, adult; L03.116 Cellulitis of left lower limb; L97.222 Non-pressure chronic ulcer of left calf with fat layer exposed; M86.9 Osteomyelitis, unspecified; L97.929 Non-pressure chronic ulcer of unspecified part of left lower leg with unspecified severity; L97.329 Non-pressure chronic ulcer of left ankle with unspecified severity; R65.10 Systemic inflammatory response syndrome (SIRS) of non-infectious origin without acute organ dysfunction; E11.51 Type 2 diabetes mellitus with diabetic peripheral angiopathy without gangrene; L98.499 Non-pressure chronic ulcer of skin of other sites with unspecified severity; I10 Essential (primary) hypertension; E78.5 Hyperlipidemia, unspecified; E78.00 Pure hypercholesterolemia, unspecified; E66.9 Obesity, unspecified; E11.69 Type 2 diabetes mellitus with other specified complication; E11.622 Type 2 diabetes mellitus with other skin ulcer; F32.9 Major depressive disorder, single episode, unspecified; F41.9 Anxiety disorder, unspecified; I83.008 Varicose veins of unspecified lower extremity with ulcer other part of lower leg; I87.2 Venous insufficiency (chronic) (peripheral); Z88.1 Allergy status to other antibiotic agents; Z79.01 Long term (current) use of anticoagulants; Z79.899 Other long term (current) drug therapy; Z82.49 Family history of ischemic heart disease and other diseases of the circulatory system; Z86.711 Personal history of pulmonary embolism; Z88.5 Allergy status to narcotic agent; Z88.8 Allergy status to other drugs, medicaments and biological substances
CPT/HCPCS: 36415; 80048; 80053; 83605; 85027; 87040; 87071; 87075; 87186; 87205; 87641; 96374; 96375; J2270; J3010; J3370; J7030; J7040; 99285-25

== ENCOUNTER → 2016-08-08 | Outpatient (CLI) | payer SELFPAY ==
[2016-08-06 14:39] VITALS: BP 145/84
[~2016-08-08] MED LIST changes: +ALPR1TAB2 PO; +CARV6.252 PO; +GABA-585 PO; +GABA-586 PO; +HYDR-965 PO; +LEVO750T31 PO; +LISI-334 PO; +MORP30TA3 PO; +OXYC1TAB9 PO; +POLY17PO29 PO; -POLY17PO5 PO; +SULF1TAB24 PO; +ZOLP5TAB PO
== END | disposition home or self-care (01) ==
LOC: PMGWOUND 07:45
PROVIDERS: ATTEND Preventive Medicine Undersea and Hyperbaric Medicine
DX: I87.312 Chronic venous hypertension (idiopathic) with ulcer of left lower extremity (principal); E11.622 Type 2 diabetes mellitus with other skin ulcer; L97.822 Non-pressure chronic ulcer of other part of left lower leg with fat layer exposed; E11.51 Type 2 diabetes mellitus with diabetic peripheral angiopathy without gangrene; F41.9 Anxiety disorder, unspecified; F32.9 Major depressive disorder, single episode, unspecified; I10 Essential (primary) hypertension; E78.5 Hyperlipidemia, unspecified; E66.01 Morbid (severe) obesity due to excess calories; Z68.42 Body mass index [BMI] 45.0-49.9, adult; E11.69 Type 2 diabetes mellitus with other specified complication; M86.9 Osteomyelitis, unspecified; E78.00 Pure hypercholesterolemia, unspecified; Z87.891 Personal history of nicotine dependence; Z72.89 Other problems related to lifestyle; Z86.718 Personal history of other venous thrombosis and embolism; Z86.711 Personal history of pulmonary embolism; Z79.01 Long term (current) use of anticoagulants; Z86.14 Personal history of Methicillin resistant Staphylococcus aureus infection
CPT/HCPCS: 29581; 97597; 97598

== ENCOUNTER → 2016-08-11 | Outpatient (CLI) | payer SELFPAY ==
[2016-08-06 14:39] VITALS: BP 145/84
== END | disposition home or self-care (01) ==
LOC: PMGWOUND 09:38
PROVIDERS: ATTEND Emergency Medicine Undersea and Hyperbaric Medicine
DX: I87.312 Chronic venous hypertension (idiopathic) with ulcer of left lower extremity (principal); E11.622 Type 2 diabetes mellitus with other skin ulcer; L97.821 Non-pressure chronic ulcer of other part of left lower leg limited to breakdown of skin; E11.51 Type 2 diabetes mellitus with diabetic peripheral angiopathy without gangrene; F41.9 Anxiety disorder, unspecified; F32.9 Major depressive disorder, single episode, unspecified; E78.5 Hyperlipidemia, unspecified; Z86.711 Personal history of pulmonary embolism; Z86.718 Personal history of other venous thrombosis and embolism; Z87.891 Personal history of nicotine dependence; Z72.89 Other problems related to lifestyle
CPT/HCPCS: 29581

== ENCOUNTER → 2016-08-15 | Outpatient (CLI) | payer SELFPAY ==
[2016-08-06 14:39] VITALS: BP 145/84
== END | disposition home or self-care (01) ==
LOC: PMGWOUND 09:44
PROVIDERS: ATTEND Emergency Medicine Undersea and Hyperbaric Medicine
DX: I87.312 Chronic venous hypertension (idiopathic) with ulcer of left lower extremity (principal); E11.622 Type 2 diabetes mellitus with other skin ulcer; L97.821 Non-pressure chronic ulcer of other part of left lower leg limited to breakdown of skin; F41.9 Anxiety disorder, unspecified; E78.5 Hyperlipidemia, unspecified; F32.9 Major depressive disorder, single episode, unspecified; E11.51 Type 2 diabetes mellitus with diabetic peripheral angiopathy without gangrene; E66.01 Morbid (severe) obesity due to excess calories; Z68.42 Body mass index [BMI] 45.0-49.9, adult; E78.00 Pure hypercholesterolemia, unspecified; E11.69 Type 2 diabetes mellitus with other specified complication; M86.9 Osteomyelitis, unspecified; Z79.01 Long term (current) use of anticoagulants; Z72.89 Other problems related to lifestyle; Z87.891 Personal history of nicotine dependence; Z86.718 Personal history of other venous thrombosis and embolism; Z86.711 Personal history of pulmonary embolism; Z86.14 Personal history of Methicillin resistant Staphylococcus aureus infection
CPT/HCPCS: 29581; 97597; 97598

== ENCOUNTER → 2016-08-19 | Outpatient (CLI) | payer SELFPAY ==
[2016-08-06 14:39] VITALS: BP 145/84
== END | disposition home or self-care (01) ==
LOC: PMGWOUND 09:34
PROVIDERS: ATTEND Emergency Medicine Undersea and Hyperbaric Medicine
DX: I87.312 Chronic venous hypertension (idiopathic) with ulcer of left lower extremity (principal); E11.622 Type 2 diabetes mellitus with other skin ulcer; L97.821 Non-pressure chronic ulcer of other part of left lower leg limited to breakdown of skin; F41.9 Anxiety disorder, unspecified; F32.9 Major depressive disorder, single episode, unspecified; E78.5 Hyperlipidemia, unspecified; E66.01 Morbid (severe) obesity due to excess calories; Z68.42 Body mass index [BMI] 45.0-49.9, adult; E11.51 Type 2 diabetes mellitus with diabetic peripheral angiopathy without gangrene; Z79.01 Long term (current) use of anticoagulants; Z72.89 Other problems related to lifestyle; Z86.14 Personal history of Methicillin resistant Staphylococcus aureus infection; Z86.711 Personal history of pulmonary embolism; Z86.718 Personal history of other venous thrombosis and embolism; Z87.891 Personal history of nicotine dependence
CPT/HCPCS: 29581

== ENCOUNTER → 2016-08-22 | Outpatient (CLI) | payer SELFPAY ==
[2016-08-06 14:39] VITALS: BP 145/84
== END | disposition home or self-care (01) ==
LOC: PMGWOUND 09:32
PROVIDERS: ATTEND Preventive Medicine Undersea and Hyperbaric Medicine
DX: I87.312 Chronic venous hypertension (idiopathic) with ulcer of left lower extremity (principal); L97.821 Non-pressure chronic ulcer of other part of left lower leg limited to breakdown of skin; E11.51 Type 2 diabetes mellitus with diabetic peripheral angiopathy without gangrene; F41.9 Anxiety disorder, unspecified; F32.9 Major depressive disorder, single episode, unspecified; E78.5 Hyperlipidemia, unspecified; Z86.711 Personal history of pulmonary embolism; Z86.718 Personal history of other venous thrombosis and embolism; Z87.891 Personal history of nicotine dependence; Z72.89 Other problems related to lifestyle
CPT/HCPCS: 97597; 97598

== ENCOUNTER → 2016-08-26 | Outpatient (CLI) | payer SELFPAY ==
[2016-08-06 14:39] VITALS: BP 145/84
== END | disposition home or self-care (01) ==
LOC: PMGWOUND 08:23
PROVIDERS: ATTEND Emergency Medicine Undersea and Hyperbaric Medicine
DX: E11.622 Type 2 diabetes mellitus with other skin ulcer (principal); L98.492 Non-pressure chronic ulcer of skin of other sites with fat layer exposed; E11.51 Type 2 diabetes mellitus with diabetic peripheral angiopathy without gangrene; F41.9 Anxiety disorder, unspecified; F32.9 Major depressive disorder, single episode, unspecified; E78.5 Hyperlipidemia, unspecified; E66.01 Morbid (severe) obesity due to excess calories; Z68.42 Body mass index [BMI] 45.0-49.9, adult; E11.69 Type 2 diabetes mellitus with other specified complication; M86.9 Osteomyelitis, unspecified; E78.00 Pure hypercholesterolemia, unspecified; Z86.718 Personal history of other venous thrombosis and embolism; Z86.711 Personal history of pulmonary embolism; Z72.89 Other problems related to lifestyle; Z87.891 Personal history of nicotine dependence; Z79.01 Long term (current) use of anticoagulants; Z86.14 Personal history of Methicillin resistant Staphylococcus aureus infection
CPT/HCPCS: 29581

== ENCOUNTER → 2016-08-29 | Outpatient (CLI) | payer SELFPAY ==
[2016-08-06 14:39] VITALS: BP 145/84
== END | disposition home or self-care (01) ==
LOC: PMGWOUND 09:48
PROVIDERS: ATTEND Preventive Medicine Undersea and Hyperbaric Medicine
DX: I87.312 Chronic venous hypertension (idiopathic) with ulcer of left lower extremity (principal); L97.822 Non-pressure chronic ulcer of other part of left lower leg with fat layer exposed; F41.9 Anxiety disorder, unspecified; E78.5 Hyperlipidemia, unspecified; F32.9 Major depressive disorder, single episode, unspecified; E66.01 Morbid (severe) obesity due to excess calories; Z68.42 Body mass index [BMI] 45.0-49.9, adult; E78.00 Pure hypercholesterolemia, unspecified; E11.51 Type 2 diabetes mellitus with diabetic peripheral angiopathy without gangrene; E11.69 Type 2 diabetes mellitus with other specified complication; M86.9 Osteomyelitis, unspecified; Z72.89 Other problems related to lifestyle; Z86.14 Personal history of Methicillin resistant Staphylococcus aureus infection; Z87.891 Personal history of nicotine dependence; Z86.718 Personal history of other venous thrombosis and embolism; Z86.711 Personal history of pulmonary embolism; Z79.01 Long term (current) use of anticoagulants
CPT/HCPCS: 29581; 97597; 97598

== ENCOUNTER → 2016-09-02 | Outpatient (CLI) | payer SELFPAY ==
[2016-08-06 14:39] VITALS: BP 145/84
== END | disposition home or self-care (01) ==
LOC: PMGWOUND 10:40
PROVIDERS: ATTEND Emergency Medicine Undersea and Hyperbaric Medicine
DX: I87.312 Chronic venous hypertension (idiopathic) with ulcer of left lower extremity (principal); L97.822 Non-pressure chronic ulcer of other part of left lower leg with fat layer exposed; F41.9 Anxiety disorder, unspecified; E78.5 Hyperlipidemia, unspecified; F32.9 Major depressive disorder, single episode, unspecified; E66.01 Morbid (severe) obesity due to excess calories; Z68.42 Body mass index [BMI] 45.0-49.9, adult; E78.00 Pure hypercholesterolemia, unspecified; E11.69 Type 2 diabetes mellitus with other specified complication; M86.9 Osteomyelitis, unspecified; E11.51 Type 2 diabetes mellitus with diabetic peripheral angiopathy without gangrene; Z86.711 Personal history of pulmonary embolism; Z79.01 Long term (current) use of anticoagulants; Z87.891 Personal history of nicotine dependence; Z86.14 Personal history of Methicillin resistant Staphylococcus aureus infection; Z86.718 Personal history of other venous thrombosis and embolism; Z72.89 Other problems related to lifestyle
CPT/HCPCS: 29581

== ENCOUNTER → 2016-09-05 | Outpatient (CLI) | payer SELFPAY ==
[2016-08-06 14:39] VITALS: BP 145/84
[~2016-09-05] MED LIST changes: -ASPI325T4 PO; +ASPI325T8 PO; +DOCU-109 PO; -DOCU-27 PO
== END | disposition home or self-care (01) ==
LOC: PMGWOUND 10:03
PROVIDERS: ATTEND Preventive Medicine Undersea and Hyperbaric Medicine
DX: I87.312 Chronic venous hypertension (idiopathic) with ulcer of left lower extremity (principal); E11.622 Type 2 diabetes mellitus with other skin ulcer; L97.822 Non-pressure chronic ulcer of other part of left lower leg with fat layer exposed; E11.51 Type 2 diabetes mellitus with diabetic peripheral angiopathy without gangrene; F41.9 Anxiety disorder, unspecified; F32.9 Major depressive disorder, single episode, unspecified; I10 Essential (primary) hypertension; E78.5 Hyperlipidemia, unspecified; Z86.718 Personal history of other venous thrombosis and embolism; Z86.711 Personal history of pulmonary embolism; Z87.891 Personal history of nicotine dependence; Z72.89 Other problems related to lifestyle
CPT/HCPCS: 29581

== ENCOUNTER → 2016-09-09 | Outpatient (CLI) | payer SELFPAY ==
[2016-08-06 14:39] VITALS: BP 145/84
== END | disposition home or self-care (01) ==
LOC: PMGWOUND 11:56
PROVIDERS: ATTEND Preventive Medicine Undersea and Hyperbaric Medicine
DX: I87.312 Chronic venous hypertension (idiopathic) with ulcer of left lower extremity (principal); E11.622 Type 2 diabetes mellitus with other skin ulcer; L97.822 Non-pressure chronic ulcer of other part of left lower leg with fat layer exposed; E11.51 Type 2 diabetes mellitus with diabetic peripheral angiopathy without gangrene; F41.9 Anxiety disorder, unspecified; F32.9 Major depressive disorder, single episode, unspecified; I10 Essential (primary) hypertension; E78.5 Hyperlipidemia, unspecified; E66.01 Morbid (severe) obesity due to excess calories; Z68.42 Body mass index [BMI] 45.0-49.9, adult; E78.00 Pure hypercholesterolemia, unspecified; E11.69 Type 2 diabetes mellitus with other specified complication; M86.9 Osteomyelitis, unspecified; Z86.711 Personal history of pulmonary embolism; Z72.89 Other problems related to lifestyle; Z79.01 Long term (current) use of anticoagulants; Z86.14 Personal history of Methicillin resistant Staphylococcus aureus infection; Z86.718 Personal history of other venous thrombosis and embolism; Z87.891 Personal history of nicotine dependence
CPT/HCPCS: 29581

== ENCOUNTER → 2016-09-12 | Outpatient (CLI) | payer SELFPAY ==
[2016-08-06 14:39] VITALS: BP 145/84
== END | disposition home or self-care (01) ==
LOC: PMGWOUND 09:54
PROVIDERS: ATTEND Preventive Medicine Undersea and Hyperbaric Medicine
DX: I87.312 Chronic venous hypertension (idiopathic) with ulcer of left lower extremity (principal); L97.821 Non-pressure chronic ulcer of other part of left lower leg limited to breakdown of skin; F41.9 Anxiety disorder, unspecified; I10 Essential (primary) hypertension; E78.5 Hyperlipidemia, unspecified; F32.9 Major depressive disorder, single episode, unspecified; E11.51 Type 2 diabetes mellitus with diabetic peripheral angiopathy without gangrene; E78.00 Pure hypercholesterolemia, unspecified; E66.01 Morbid (severe) obesity due to excess calories; Z68.42 Body mass index [BMI] 45.0-49.9, adult; Z86.14 Personal history of Methicillin resistant Staphylococcus aureus infection; Z87.891 Personal history of nicotine dependence; Z86.718 Personal history of other venous thrombosis and embolism; Z86.711 Personal history of pulmonary embolism; Z79.01 Long term (current) use of anticoagulants; Z72.89 Other problems related to lifestyle
CPT/HCPCS: 29581

== ENCOUNTER → 2016-09-17 | Outpatient (CLI) | payer SELFPAY ==
[2016-08-06 14:39] VITALS: BP 145/84
== END | disposition home or self-care (01) ==
LOC: PMGWOUND 09:54
PROVIDERS: ATTEND Preventive Medicine Undersea and Hyperbaric Medicine
DX: I87.312 Chronic venous hypertension (idiopathic) with ulcer of left lower extremity (principal); E11.622 Type 2 diabetes mellitus with other skin ulcer; L97.822 Non-pressure chronic ulcer of other part of left lower leg with fat layer exposed; F41.9 Anxiety disorder, unspecified; E78.5 Hyperlipidemia, unspecified; F32.9 Major depressive disorder, single episode, unspecified; E66.01 Morbid (severe) obesity due to excess calories; Z68.42 Body mass index [BMI] 45.0-49.9, adult; E78.00 Pure hypercholesterolemia, unspecified; E11.51 Type 2 diabetes mellitus with diabetic peripheral angiopathy without gangrene; E11.69 Type 2 diabetes mellitus with other specified complication; M86.9 Osteomyelitis, unspecified; Z86.711 Personal history of pulmonary embolism; Z86.718 Personal history of other venous thrombosis and embolism; Z79.01 Long term (current) use of anticoagulants; Z72.89 Other problems related to lifestyle; Z86.14 Personal history of Methicillin resistant Staphylococcus aureus infection; Z87.891 Personal history of nicotine dependence
CPT/HCPCS: 29581

== ENCOUNTER → 2016-09-24 | Outpatient (CLI) | payer SELFPAY ==
[2016-08-06 14:39] VITALS: BP 145/84
== END | disposition home or self-care (01) ==
LOC: PMGWOUND 09:49
PROVIDERS: ATTEND Preventive Medicine Undersea and Hyperbaric Medicine
DX: I87.312 Chronic venous hypertension (idiopathic) with ulcer of left lower extremity (principal); L97.822 Non-pressure chronic ulcer of other part of left lower leg with fat layer exposed; F41.9 Anxiety disorder, unspecified; I10 Essential (primary) hypertension; E78.5 Hyperlipidemia, unspecified; F32.9 Major depressive disorder, single episode, unspecified; E11.51 Type 2 diabetes mellitus with diabetic peripheral angiopathy without gangrene; E78.00 Pure hypercholesterolemia, unspecified; E66.01 Morbid (severe) obesity due to excess calories; Z68.42 Body mass index [BMI] 45.0-49.9, adult; Z72.89 Other problems related to lifestyle; Z86.14 Personal history of Methicillin resistant Staphylococcus aureus infection; Z87.891 Personal history of nicotine dependence; Z86.718 Personal history of other venous thrombosis and embolism; Z86.711 Personal history of pulmonary embolism; Z79.01 Long term (current) use of anticoagulants
CPT/HCPCS: 29581

== ENCOUNTER → 2016-10-03 | Outpatient (CLI) | payer SELFPAY ==
[2016-08-06 14:39] VITALS: BP 145/84
== END | disposition home or self-care (01) ==
LOC: PMGWOUND 11:58
PROVIDERS: ATTEND Preventive Medicine Undersea and Hyperbaric Medicine
DX: I87.312 Chronic venous hypertension (idiopathic) with ulcer of left lower extremity (principal); E11.622 Type 2 diabetes mellitus with other skin ulcer; L97.822 Non-pressure chronic ulcer of other part of left lower leg with fat layer exposed; E11.51 Type 2 diabetes mellitus with diabetic peripheral angiopathy without gangrene; F41.9 Anxiety disorder, unspecified; F32.9 Major depressive disorder, single episode, unspecified; E78.5 Hyperlipidemia, unspecified; E78.00 Pure hypercholesterolemia, unspecified; E11.69 Type 2 diabetes mellitus with other specified complication; M86.68 Other chronic osteomyelitis, other site; E66.01 Morbid (severe) obesity due to excess calories; Z68.42 Body mass index [BMI] 45.0-49.9, adult; Z87.891 Personal history of nicotine dependence; Z86.718 Personal history of other venous thrombosis and embolism; Z86.711 Personal history of pulmonary embolism; Z72.89 Other problems related to lifestyle; Z86.14 Personal history of Methicillin resistant Staphylococcus aureus infection
CPT/HCPCS: 29581

== ENCOUNTER → 2016-10-08 | Outpatient (CLI) | payer SELFPAY ==
[2016-08-06 14:39] VITALS: BP 145/84
== END | disposition home or self-care (01) ==
LOC: PMGWOUND 10:10
PROVIDERS: ATTEND Preventive Medicine Undersea and Hyperbaric Medicine
DX: I87.312 Chronic venous hypertension (idiopathic) with ulcer of left lower extremity (principal); L97.822 Non-pressure chronic ulcer of other part of left lower leg with fat layer exposed; F41.9 Anxiety disorder, unspecified; E78.5 Hyperlipidemia, unspecified; I10 Essential (primary) hypertension; F32.9 Major depressive disorder, single episode, unspecified; E66.01 Morbid (severe) obesity due to excess calories; E11.69 Type 2 diabetes mellitus with other specified complication; M86.68 Other chronic osteomyelitis, other site; E11.51 Type 2 diabetes mellitus with diabetic peripheral angiopathy without gangrene; E78.00 Pure hypercholesterolemia, unspecified; Z86.14 Personal history of Methicillin resistant Staphylococcus aureus infection; Z86.718 Personal history of other venous thrombosis and embolism; Z86.711 Personal history of pulmonary embolism; Z68.42 Body mass index [BMI] 45.0-49.9, adult; Z79.01 Long term (current) use of anticoagulants; Z87.891 Personal history of nicotine dependence; Z72.89 Other problems related to lifestyle
CPT/HCPCS: 99214

== ENCOUNTER → 2016-10-30 | Outpatient (CLI) | payer SELFPAY ==
[2016-08-06 14:39] VITALS: BP 145/84
== END | disposition home or self-care (01) ==
LOC: PMGWOUND 10:20
PROVIDERS: ATTEND Emergency Medicine Undersea and Hyperbaric Medicine
DX: I87.312 Chronic venous hypertension (idiopathic) with ulcer of left lower extremity (principal); E11.622 Type 2 diabetes mellitus with other skin ulcer; L97.821 Non-pressure chronic ulcer of other part of left lower leg limited to breakdown of skin; E11.51 Type 2 diabetes mellitus with diabetic peripheral angiopathy without gangrene; F41.9 Anxiety disorder, unspecified; F32.9 Major depressive disorder, single episode, unspecified; E78.5 Hyperlipidemia, unspecified; I10 Essential (primary) hypertension; M86.8X8 Other osteomyelitis, other site; E11.69 Type 2 diabetes mellitus with other specified complication; E66.01 Morbid (severe) obesity due to excess calories; E78.00 Pure hypercholesterolemia, unspecified; Z86.718 Personal history of other venous thrombosis and embolism; Z86.711 Personal history of pulmonary embolism; Z87.891 Personal history of nicotine dependence; Z72.89 Other problems related to lifestyle; Z68.42 Body mass index [BMI] 45.0-49.9, adult; Z86.14 Personal history of Methicillin resistant Staphylococcus aureus infection
CPT/HCPCS: 29581; 97597; 97598

== ENCOUNTER 2016-12-19 12:40 | Inpatient (IN) | payer SELFPAY ==
[~2016-12-19] VITALS: Ht 167.6 cm; Wt 117.5 kg
[~2016-12-19 12:40] MED LIST changes: -AMOX250C PO; -APIX5TAB PO; -ASCO500T3 PO; -DOXY100T PO; -METO25TA4 PO; -MULT1TAB52 PO
[2016-12-19] MEDS ORDERED: IV NORMAL SALINE 1000ML BAG 1,000 ML IV SCH (13:33)
[2016-12-19 14:32] LABS: BASO # 0.1 x10^3/uL (0.0-0.2); BASO % 1 % (0-3); EOS % 2 % (0-3); HEMATOCRIT 35.5 % (36.0-47.0); LYMPH # 1.6 x10^3/uL (1.0-4.8); LYMPH % 21 % (24-48); MEAN CORPUSCULAR HEMOGLOBIN 29 pg (25-35); MEAN CORPUSCULAR HGB CONC 34 g/dL (31-37); MEAN CORPUSCULAR VOLUME 86 fL (79-100); MONO % 7 % (0-9); NEUT % 70 % (31-73); PLATELET COUNT 272 x10^3/uL (140-400); RED BLOOD COUNT 4.16 x10^6/uL (3.50-5.40); RED CELL DISTRIBUTION WIDTH 15.1 % (11.5-14.5)
[2016-12-19 14:43] LABS: CALCIUM 9.3 mg/dL (8.5-10.1); CREATININE 1.1 mg/dL (0.6-1.0); GFR 52.4; POTASSIUM 3.8 mmol/L (3.5-5.1)
[2016-12-19] MEDS ORDERED: ONDANSETRON PF 4 MG/2 ML VIAL. IV PRN (14:45)
[2016-12-19] MEDS: IV NORMAL SALINE 1000ML BAG 1,000 ML IV SCH (14:45)
[2016-12-19] MEDS ORDERED: ACETAMINOPHEN 325 MG TABLET. PO PRN (14:45)
--- NOTE | 2016-12-19 14:45 | PHYS DOC ---
Past Medical History Past Medical History: Anxiety, Depression, Diabetes-Type II, DVT, High Cholesterol, Hypertension, Other Additional Past Medical Histor: OSTEOMYELITIS, PE; chronic veinous stasis; PVD Past Surgical History: Appendectomy, Other Additional Past Surgical Histo: VEIN ABLATION; vertical sleeve gastrectomy; blood clot removal;vena cava fi Alcohol Use: Rarely Drug Use: None Adult General Chief Complaint Chief Complaint: WOUND CHECK HPI HPI Patient is a 51 year old female who presents with complaint of nonhealing wound to the left lower leg. The patient was referred to the emergency department from the wound care clinic by Dr. Ayala who has been caring for the patient's wound. The patient has history of peripheral vascular disease and type 2 diabetes mellitus and has been receiving treatment for a chronic left lower leg diabetic ulcer. Patient states that due to difficulty with medication compliance, she has been having difficulty with the wound being able to fully heal over the past 3 years. The patient was receiving department today in the wound care clinic by Dr. Ayala when he noted extensive tunneling of the wound and concern for deep space necrosis. He recommended to the patient come to the emergency department for acute evaluation and felt that the patient would likely need admission to the hospital for surgical consult. The patient states that she has been noticing greenish and yellow drainage from the wound but denies any foul smelling pus and denies any extensive ascending erythema to the left lower leg. Patient has had no recorded fevers at home. Review of Systems Review of Systems Constitutional: Denies fever or chills [] Eyes: Denies change in visual acuity, redness, or eye pain [] HENT: Denies nasal congestion or sore throat [] Respiratory: Denies cough or shortness of breath [] Cardiovascular: Denies chest pain or edema[] GI: Denies abdominal pain, nausea, vomiting, bloody stools or diarrhea [] : Denies dysuria or hematuria [] Musculoskeletal: Left lower leg wound[] Integument: Denies rash or skin lesions [] Neurologic: Denies headache, focal weakness or sensory changes [] Current Medications Current Medications Current Medications Medications (Trade) Dose Ordered Sig/Lili Start Time Stop Time Status Last Admin Dose Admin Sodium Chloride 1,000 ml @ 100 mls/hr Q10H 12/19/16 13:33 12/19/16 23:32 12/19/16 14:34 100 MLS/HR Allergies Allergies Allergies Coded Allergies Type Severity Reaction Last Updated Verified ibuprofen Allergy Severe CAUSES RENAL FAILURE 08/01/16 Yes clindamycin Allergy Intermediate Hives 08/01/16 Yes tramadol Allergy Intermediate Hives 08/01/16 Yes I S O L A T I O N *CONTACT* Allergy Unknown 08/01/16 Yes Physical Exam Physical Exam Constitutional: Well developed, well nourished, no acute distress, non-toxic appearance. [] HENT: Normocephalic, atraumatic, bilateral external ears normal, oropharynx moist, no oral exudates, nose normal. [] Eyes: PERRLA, EOMI, conjunctiva normal, no discharge. [] Neck: Normal range of motion, no tenderness, supple, no stridor. [] Cardiovascular:Heart rate regular rhythm, no murmur [] Lungs & Thorax: Bilateral breath sounds clear to auscultation [] Abdomen: Bowel sounds normal, soft, no tenderness, no masses, no pulsatile masses. [] Skin: Warm, dry, no erythema, no rash. [] Back: No tenderness, no CVA tenderness. [] Extremities: 6 cm ulcerative wound into the subcutaneous tissue, extensive peripheral tunneling present along posterior margins, no foul-smelling pus, overlying necrotic tissue present, no cyanosis, no clubbing, ROM intact. [] Neurologic: Alert and oriented X 3, normal motor function, normal sensory function, no focal deficits noted. [] Current Patient Data Vital Signs Vital Signs Date Time Temp Pulse Resp B/P (MAP) Pulse Ox O2 Delivery O2 Flow Rate FiO2 12/19/16 12:55 97.6 57 16 176/92 (120) 96 Room Air 97.6 Lab Values Basic labs pending at time of admission EKG EKG Not performed[] Radiology/Procedures Radiology/Procedures Not performed[] Course & Med Decision Making Course & Med Decision Making Pertinent Labs and Imaging studies reviewed. (See chart for details) Patient's wound is complex and will need surgical consultation for further debridement due to presence of necrotic tissue and concern for possible early infection. I spoke with Dr. Cardona who accepted care patient in hospital. A consult was placed to Dr. Baldwin of general surgery to follow patient in hospital. Dragon Disclaimer Dragon Disclaimer This electronic medical record was generated, in whole or in part, using a voice recognition dictation system. Departure Departure Impression: Primary Impression: Non-pressure chronic ulcer of left calf with fat layer exposed Additional Impressions: Type 2 diabetes mellitus Peripheral vascular disease Disposition: ADMITTED INPATIENT Admitting Physician: Levi Cardona Condition: STABLE Referrals: JESSICA VARGAS MD (PCP) Problem Qualifiers Additional Impressions: Type 2 diabetes mellitus Diabetes mellitus complication status: with unspecified complications Diabetes mellitus terminal operator insulin use: unspecified terminal operator insulin use status Qualified Codes: E11.8 - Type 2 diabetes mellitus with unspecified complications BRYCE MARTINES MD Dec 19, 2016 14:45
[2016-12-19 14:49] LABS: ALBUMIN 3.6 g/dL (3.4-5.0); ALBUMIN/GLOBULIN RATIO 1.1 (1.0-1.7); TOTAL BILIRUBIN 0.4 mg/dL (0.2-1.0); TOTAL PROTEIN 6.9 g/dL (6.4-8.2)
[2016-12-19] MEDS ORDERED: MORPHINE SULFATE 4 MG/ML DISP.SYRIN. ONE (15:02)
[2016-12-19] MEDS: MORPHINE SULFATE 4 MG/ML DISP.SYRIN. IV PRN ×3 (15:05→19:42)
[2016-12-19 15:30] VITALS: BP 150/78
[2016-12-19] MEDS ORDERED: APIX5TAB PO (15:32)
[2016-12-19] MEDS ORDERED: METO25TA4 PO (15:32)
[2016-12-19] MEDS ORDERED: DOXY100T PO (15:32)
[2016-12-19] MEDS ORDERED: INFLUENZA VAX SCREEN BY RX. MC ONE (16:00)
--- NOTE | 2016-12-19 16:25 | PDOC1 ---
History and Physical Date of Admission Date of Admission 12/19/16 Identification/Chief Complaint Chief Complaint left leg ulcer Problems: Source Source: Chart review, Patient History of Present Illness History of Present Illness HPI Patient is a 51 year old female who presents with complaint of nonhealing wound to the left lower leg. pt has had unhealing left leg for about 2 years, had multiple debridement by wound care clinic and dr. Miller. Today, she was seen at the wound care clinic by dr. Littlejohn, and think she need deep sx i and d and sent here here. She dosenot remember had PAD or not, but said Dr. MILLER had done some vein mapping and vein ablation to improve PVD. had h/o wound cx with MRSA and pseud from last debridement 07/2016. was recently on doxy for 12ds, no improvement. The leg wound looks big, with greenish drainage. no fever, chills, cough ,sob, chest pain, abd pain. h/o multiple bl leg dvt, PE, IVC filter, on eliquis. h/o possible osteo. Past Medical History Past Medical History Anxiety, Depression, Diabetes-Type II, DVT, High Cholesterol, Hypertension, Other Additional Past Medical Histor: OSTEOMYELITIS, PE; chronic veinous stasis; PVD Past Surgical History Past Surgical History Appendectomy, Other Additional Past Surgical Histo: VEIN ABLATION; vertical sleeve gastrectomy; blood clot removal;vena cava fi Family History Family History: Hypertension Social History Smoke: No ALCOHOL: none Drugs: None Current Problem List Problem List Problems Medical Problems: (1) Non-pressure chronic ulcer of left calf with fat layer exposed Status: Acute (2) Peripheral vascular disease Status: Acute (3) Type 2 diabetes mellitus Status: Acute Current Medications Current Medications Current Medications Medications (Trade) Dose Ordered Sig/Lili Start Time Stop Time Status Last Admin Dose Admin Acetaminophen (Tylenol) 650 mg PRN Q4HRS PRN 12/19/16 14:45 12/20/16 14:44 Info (Do NOT chart on this placeholder) 1 each 1X ONCE 12/19/16 16:00 12/19/16 16:01 UNV Morphine Sulfate 4 mg STK-MED ONCE 12/19/16 15:02 12/19/16 15:03 DC Ondansetron HCl (Zofran) 4 mg PRN Q8HRS PRN 12/19/16 14:45 12/20/16 14:44 Sodium Chloride 1,000 ml @ 100 mls/hr Q10H 12/19/16 14:45 12/20/16 14:44 Allergies Allergies Allergies Coded Allergies Type Severity Reaction Last Updated Verified ibuprofen Allergy Severe CAUSES RENAL FAILURE 08/01/16 Yes clindamycin Allergy Intermediate Hives 08/01/16 Yes tramadol Allergy Intermediate Hives 08/01/16 Yes I S O L A T I O N *CONTACT* Allergy Unknown 08/01/16 Yes ROS Review of System CONSTITUTIONAL: No fever or chills EYES: No recent changes SKIN: No rash or itching CARDIOVASCULAR: No chest pain, syncope, palpitations, or edema RESPIRATORY: No SOB or cough GASTROINTESTINAL: No nausea, vomiting or abdominal pain NEUROLOGICAL: No headaches or weakness ENDOCRINE: No cold or heat intolerance GENITOURINARY: No urgency or frequency of urination MUSCULOSKELETAL: No back pain or joint pain LYMPHATICS: No enlarged lymph nodes PSYCHIATRIC: No anxiety or depression Physical Exam Physical Exam GEN.: No apparent distress. Alert and oriented. HEENT: Head is normocephalic, atraumatic NECK: Supple. LUNGS: Clear to auscultation. HEART: RRR, S1, S2 present. Peripheral pulses intact ABDOMEN: Soft, nontender. Positive bowel sounds. EXTREMITIES: Without any cyanosis. left leg has a huge open wound with erythema, yellow drainage. cool bl feet, faint pedal pulse bl. NEUROLOGIC: Normal speech, normal tone PSYCHIATRIC: Normal affect, normal mood. SKIN: No ulcerations Vitals Vitals Vital Signs Date Time Temp Pulse Resp B/P (MAP) Pulse Ox O2 Delivery O2 Flow Rate FiO2 12/19/16 15:30 96.1 66 18 150/78 (102) 98 Room Air 96.1 Labs Labs Laboratory Tests Test 12/19/16 14:15 White Blood Count 8.0 x10^3/uL (4.0-11.0) Red Blood Count 4.16 x10^6/uL (3.50-5.40) Hemoglobin 12.0 g/dL (12.0-15.5) Hematocrit 35.5 % (36.0-47.0) Mean Corpuscular Volume 86 fL (79-100) Mean Corpuscular Hemoglobin 29 pg (25-35) Mean Corpuscular Hemoglobin Concent 34 g/dL (31-37) Red Cell Distribution Width 15.1 % (11.5-14.5) Platelet Count 272 x10^3/uL (140-400) Neutrophils (%) (Auto) 70 % (31-73) Lymphocytes (%) (Auto) 21 % (24-48) Monocytes (%) (Auto) 7 % (0-9) Eosinophils (%) (Auto) 2 % (0-3) Basophils (%) (Auto) 1 % (0-3) Neutrophils # (Auto) 5.6 x10^3uL (1.8-7.7) Lymphocytes # (Auto) 1.6 x10^3/uL (1.0-4.8) Monocytes # (Auto) 0.6 x10^3/uL (0.0-1.1) Eosinophils # (Auto) 0.2 x10^3/uL (0.0-0.7) Basophils # (Auto) 0.1 x10^3/uL (0.0-0.2) Sodium Level 141 mmol/L (136-145) Potassium Level 3.8 mmol/L (3.5-5.1) Chloride Level 106 mmol/L (98-107) Carbon Dioxide Level 24 mmol/L (21-32) Anion Gap 11 (6-14) Blood Urea Nitrogen 26 mg/dL (7-20) Creatinine 1.1 mg/dL (0.6-1.0) Estimated GFR (Cockcroft-Gault) 52.4 BUN/Creatinine Ratio 24 (6-20) Glucose Level 103 mg/dL (70-99) Calcium Level 9.3 mg/dL (8.5-10.1) Total Bilirubin 0.4 mg/dL (0.2-1.0) Aspartate Amino Transf (AST/SGOT) 22 U/L (15-37) Alanine Aminotransferase (ALT/SGPT) 17 U/L (14-59) Alkaline Phosphatase 65 U/L (46-116) Total Protein 6.9 g/dL (6.4-8.2) Albumin 3.6 g/dL (3.4-5.0) Albumin/Globulin Ratio 1.1 (1.0-1.7) Laboratory Tests Test 12/19/16 14:15 White Blood Count 8.0 x10^3/uL (4.0-11.0) Red Blood Count 4.16 x10^6/uL (3.50-5.40) Hemoglobin 12.0 g/dL (12.0-15.5) Hematocrit 35.5 % (36.0-47.0) Mean Corpuscular Volume 86 fL (79-100) Mean Corpuscular Hemoglobin 29 pg (25-35) Mean Corpuscular Hemoglobin Concent 34 g/dL (31-37) Red Cell Distribution Width 15.1 % (11.5-14.5) Platelet Count 272 x10^3/uL (140-400) Neutrophils (%) (Auto) 70 % (31-73) Lymphocytes (%) (Auto) 21 % (24-48) Monocytes (%) (Auto) 7 % (0-9) Eosinophils (%) (Auto) 2 % (0-3) Basophils (%) (Auto) 1 % (0-3) Neutrophils # (Auto) 5.6 x10^3uL (1.8-7.7) Lymphocytes # (Auto) 1.6 x10^3/uL (1.0-4.8) Monocytes # (Auto) 0.6 x10^3/uL (0.0-1.1) Eosinophils # (Auto) 0.2 x10^3/uL (0.0-0.7) Basophils # (Auto) 0.1 x10^3/uL (0.0-0.2) Sodium Level 141 mmol/L (136-145) Potassium Level 3.8 mmol/L (3.5-5.1) Chloride Level 106 mmol/L (98-107) Carbon Dioxide Level 24 mmol/L (21-32) Anion Gap 11 (6-14) Blood Urea Nitrogen 26 mg/dL (7-20) Creatinine 1.1 mg/dL (0.6-1.0) Estimated GFR (Cockcroft-Gault) 52.4 BUN/Creatinine Ratio 24 (6-20) Glucose Level 103 mg/dL (70-99) Calcium Level 9.3 mg/dL (8.5-10.1) Total Bilirubin 0.4 mg/dL (0.2-1.0) Aspartate Amino Transf (AST/SGOT) 22 U/L (15-37) Alanine Aminotransferase (ALT/SGPT) 17 U/L (14-59) Alkaline Phosphatase 65 U/L (46-116) Total Protein 6.9 g/dL (6.4-8.2) Albumin 3.6 g/dL (3.4-5.0) Albumin/Globulin Ratio 1.1 (1.0-1.7) VTE Prophylaxis Ordered VTE Prophylaxis Devices: No VTE Pharmacological Prophylaxi: No Assessment/Plan Assessment/Plan left leg unhealing ulcer dm2 h/o multiple bl leg dvt , PE, IVC filter, on eliquis htn hld anxiety h/o possible osteomyelitis morbid obesity PVD plan: vascular, id consult add bcx, wound cx add vanco, cefepime cont home meds ssi, check hba1c , not on DM2 meds now elevate left leg left leg MRI to rule out osteo on eliquis, may need to hold if need sx , need to double check with vascular sx admit 2nZACHERY Ram MD Dec 19, 2016 16:25
[2016-12-19] MEDS ORDERED: DEXTROSE 50% 25 GM / 50ML DISP.SYRIN. IV PRN (16:30)
[2016-12-19] MEDS ORDERED: POLYETHYLENE GLYCOL 3350 17 GM PACKET. PO PRN (16:30)
[2016-12-19] MEDS ORDERED: PROCHLORPERAZINE 5 MG TABLET. PO PRN (16:30)
[2016-12-19] MEDS ORDERED: MECLIZINE HCL 12.5 MG TABLET. PO PRN (16:30)
[2016-12-19] MEDS ORDERED: VANCOMYCIN 2 GM in IV NORMAL SALINE 500ML BAG 500 ML IV ONE (17:00)
[2016-12-19] MEDS: INSULIN ASPART 300 UNITS/3 ML INSULN.PEN SQ SCH (17:00)
[2016-12-19] MEDS: ALPRAZolam 1 MG TABLET PO SCH ×2 (17:25→21:34)
[2016-12-19] MEDS: GABAPENTIN 300 MG CAPSULE. PO SCH ×2 (17:25→21:34)
[2016-12-19] MEDS: CEFEPIME HCL 2 GM in IV NORMAL SALINE 100ML 100 ML IV SCH (17:28)
[2016-12-19] MEDS: VANCOMYCIN PER PHARMACY MC PRN (18:48)
[2016-12-19 19:00] VITALS: BP 134/90
[2016-12-19] MEDS ORDERED: GADOBUTROL 7.5 MMOL/7.5 ML VIAL IV ONE ×2 (19:00)
[2016-12-19] MEDS: SIMVASTATIN 40 MG TABLET. PO SCH (21:34)
[2016-12-19] MEDS: APIXABAN 5 MG TABLET. PO SCH (21:34)
[2016-12-19] MEDS: ZOLPIDEM 5 MG TABLET. PO SCH (21:35)
[2016-12-19] MEDS: oxyCODONE/APAP 10/325 1 TAB TABLET PO PRN (21:35)
[2016-12-19] MEDS: METOPROLOL TART IMMED RELEASE 25 MG TABLET. PO SCH (21:36)
[2016-12-19 23:00] VITALS: BP 107/73
[2016-12-20] MEDS: CEFEPIME HCL 2 GM in IV NORMAL SALINE 100ML 100 ML IV SCH ×4 (00:38→23:35)
[2016-12-20] MEDS: IV NORMAL SALINE 1000ML BAG 1,000 ML IV SCH ×2 (00:45→10:27)
[2016-12-20 03:00] VITALS: BP 144/85
[2016-12-20] MEDS: oxyCODONE/APAP 10/325 1 TAB TABLET PO PRN ×4 (04:23→23:34)
[2016-12-20 05:43] LABS: BASO % 1 % (0-3); EOS % 3 % (0-3); HEMATOCRIT 39.2 % (36.0-47.0); HEMOGLOBIN 13.2 g/dL (12.0-15.5); LYMPH # 1.4 x10^3/uL (1.0-4.8); LYMPH % 18 % (24-48); MEAN CORPUSCULAR HEMOGLOBIN 29 pg (25-35); MEAN CORPUSCULAR HGB CONC 34 g/dL (31-37); MEAN CORPUSCULAR VOLUME 87 fL (79-100); MONO % 7 % (0-9); NEUT % 71 % (31-73); PLATELET COUNT 267 x10^3/uL (140-400); RED BLOOD COUNT 4.49 x10^6/uL (3.50-5.40); RED CELL DISTRIBUTION WIDTH 15.3 % (11.5-14.5); WHITE BLOOD COUNT 7.7 x10^3/uL (4.0-11.0)
[2016-12-20 05:54] LABS: CALCIUM 9.1 mg/dL (8.5-10.1); CREATININE 0.8 mg/dL (0.6-1.0); GFR 75.6; POTASSIUM 4.4 mmol/L (3.5-5.1)
[2016-12-20 07:00] VITALS: BP 126/75
[2016-12-20] MEDS: INSULIN ASPART 300 UNITS/3 ML INSULN.PEN SQ SCH ×3 (08:19→16:58)
[2016-12-20] MEDS: METOPROLOL TART IMMED RELEASE 25 MG TABLET. PO SCH ×2 (09:01→20:38)
[2016-12-20] MEDS: PARoxetine 20 MG TABLET PO SCH (09:02)
[2016-12-20] MEDS: GABAPENTIN 300 MG CAPSULE. PO SCH ×3 (09:03→20:38)
[2016-12-20] MEDS: ALPRAZolam 1 MG TABLET PO SCH ×3 (09:03→20:38)
[2016-12-20] MEDS: APIXABAN 5 MG TABLET. PO SCH (09:08)
--- NOTE | 2016-12-20 10:05 | PDOC ---
SURGICAL PROGRESS NOTE Subjective consult received, however vascular has operated on pt and is going to manage--- will sign off Vital Signs Vital Signs Date Time Temp Pulse Resp B/P (MAP) Pulse Ox O2 Delivery O2 Flow Rate FiO2 12/20/16 10:01 18 Room Air 12/20/16 09:01 100 126/75 12/20/16 07:00 97.5 95 97.5 I&O Intake and Output 12/21/16 07:00 Intake Total 120 ml Balance 120 ml Intake Oral 120 ml Labs Laboratory Tests Test 12/19/16 14:15 12/19/16 16:17 12/19/16 17:58 12/19/16 21:29 White Blood Count 8.0 x10^3/uL (4.0-11.0) Red Blood Count 4.16 x10^6/uL (3.50-5.40) Hemoglobin 12.0 g/dL (12.0-15.5) Hematocrit 35.5 % (36.0-47.0) Mean Corpuscular Volume 86 fL (79-100) Mean Corpuscular Hemoglobin 29 pg (25-35) Mean Corpuscular Hemoglobin Concent 34 g/dL (31-37) Red Cell Distribution Width 15.1 % (11.5-14.5) Platelet Count 272 x10^3/uL (140-400) Neutrophils (%) (Auto) 70 % (31-73) Lymphocytes (%) (Auto) 21 % (24-48) Monocytes (%) (Auto) 7 % (0-9) Eosinophils (%) (Auto) 2 % (0-3) Basophils (%) (Auto) 1 % (0-3) Neutrophils # (Auto) 5.6 x10^3uL (1.8-7.7) Lymphocytes # (Auto) 1.6 x10^3/uL (1.0-4.8) Monocytes # (Auto) 0.6 x10^3/uL (0.0-1.1) Eosinophils # (Auto) 0.2 x10^3/uL (0.0-0.7) Basophils # (Auto) 0.1 x10^3/uL (0.0-0.2) Sodium Level 141 mmol/L (136-145) Potassium Level 3.8 mmol/L (3.5-5.1) Chloride Level 106 mmol/L (98-107) Carbon Dioxide Level 24 mmol/L (21-32) Anion Gap 11 (6-14) Blood Urea Nitrogen 26 mg/dL (7-20) Creatinine 1.1 mg/dL (0.6-1.0) Estimated GFR (Cockcroft-Gault) 52.4 BUN/Creatinine Ratio 24 (6-20) Glucose Level 103 mg/dL (70-99) Calcium Level 9.3 mg/dL (8.5-10.1) Total Bilirubin 0.4 mg/dL (0.2-1.0) Aspartate Amino Transf (AST/SGOT) 22 U/L (15-37) Alanine Aminotransferase (ALT/SGPT) 17 U/L (14-59) Alkaline Phosphatase 65 U/L (46-116) Total Protein 6.9 g/dL (6.4-8.2) Albumin 3.6 g/dL (3.4-5.0) Albumin/Globulin Ratio 1.1 (1.0-1.7) Glucose (Fingerstick) 82 mg/dL (70-99) 113 mg/dL (70-99) Nasal Screen MRSA (PCR) Negative (Negative) Test 12/20/16 05:17 12/20/16 07:56 White Blood Count 7.7 x10^3/uL (4.0-11.0) Red Blood Count 4.49 x10^6/uL (3.50-5.40) Hemoglobin 13.2 g/dL (12.0-15.5) Hematocrit 39.2 % (36.0-47.0) Mean Corpuscular Volume 87 fL (79-100) Mean Corpuscular Hemoglobin 29 pg (25-35) Mean Corpuscular Hemoglobin Concent 34 g/dL (31-37) Red Cell Distribution Width 15.3 % (11.5-14.5) Platelet Count 267 x10^3/uL (140-400) Neutrophils (%) (Auto) 71 % (31-73) Lymphocytes (%) (Auto) 18 % (24-48) Monocytes (%) (Auto) 7 % (0-9) Eosinophils (%) (Auto) 3 % (0-3) Basophils (%) (Auto) 1 % (0-3) Neutrophils # (Auto) 5.4 x10^3uL (1.8-7.7) Lymphocytes # (Auto) 1.4 x10^3/uL (1.0-4.8) Monocytes # (Auto) 0.5 x10^3/uL (0.0-1.1) Eosinophils # (Auto) 0.2 x10^3/uL (0.0-0.7) Basophils # (Auto) 0.0 x10^3/uL (0.0-0.2) Sodium Level 142 mmol/L (136-145) Potassium Level 4.4 mmol/L (3.5-5.1) Chloride Level 109 mmol/L (98-107) Carbon Dioxide Level 22 mmol/L (21-32) Anion Gap 11 (6-14) Blood Urea Nitrogen 22 mg/dL (7-20) Creatinine 0.8 mg/dL (0.6-1.0) Estimated GFR (Cockcroft-Gault) 75.6 Glucose Level 93 mg/dL (70-99) Calcium Level 9.1 mg/dL (8.5-10.1) Glucose (Fingerstick) 83 mg/dL (70-99) Laboratory Tests Test 12/19/16 14:15 12/19/16 16:17 12/19/16 17:58 12/19/16 21:29 White Blood Count 8.0 x10^3/uL (4.0-11.0) Red Blood Count 4.16 x10^6/uL (3.50-5.40) Hemoglobin 12.0 g/dL (12.0-15.5) Hematocrit 35.5 % (36.0-47.0) Mean Corpuscular Volume 86 fL (79-100) Mean Corpuscular Hemoglobin 29 pg (25-35) Mean Corpuscular Hemoglobin Concent 34 g/dL (31-37) Red Cell Distribution Width 15.1 % (11.5-14.5) Platelet Count 272 x10^3/uL (140-400) Neutrophils (%) (Auto) 70 % (31-73) Lymphocytes (%) (Auto) 21 % (24-48) Monocytes (%) (Auto) 7 % (0-9) Eosinophils (%) (Auto) 2 % (0-3) Basophils (%) (Auto) 1 % (0-3) Neutrophils # (Auto) 5.6 x10^3uL (1.8-7.7) Lymphocytes # (Auto) 1.6 x10^3/uL (1.0-4.8) Monocytes # (Auto) 0.6 x10^3/uL (0.0-1.1) Eosinophils # (Auto) 0.2 x10^3/uL (0.0-0.7) Basophils # (Auto) 0.1 x10^3/uL (0.0-0.2) Sodium Level 141 mmol/L (136-145) Potassium Level 3.8 mmol/L (3.5-5.1) Chloride Level 106 mmol/L (98-107) Carbon Dioxide Level 24 mmol/L (21-32) Anion Gap 11 (6-14) Blood Urea Nitrogen 26 mg/dL (7-20) Creatinine 1.1 mg/dL (0.6-1.0) Estimated GFR (Cockcroft-Gault) 52.4 BUN/Creatinine Ratio 24 (6-20) Glucose Level 103 mg/dL (70-99) Calcium Level 9.3 mg/dL (8.5-10.1) Total Bilirubin 0.4 mg/dL (0.2-1.0) Aspartate Amino Transf (AST/SGOT) 22 U/L (15-37) Alanine Aminotransferase (ALT/SGPT) 17 U/L (14-59) Alkaline Phosphatase 65 U/L (46-116) Total Protein 6.9 g/dL (6.4-8.2) Albumin 3.6 g/dL (3.4-5.0) Albumin/Globulin Ratio 1.1 (1.0-1.7) Glucose (Fingerstick) 82 mg/dL (70-99) 113 mg/dL (70-99) Nasal Screen MRSA (PCR) Negative (Negative) Test 12/20/16 05:17 12/20/16 07:56 White Blood Count 7.7 x10^3/uL (4.0-11.0) Red Blood Count 4.49 x10^6/uL (3.50-5.40) Hemoglobin 13.2 g/dL (12.0-15.5) Hematocrit 39.2 % (36.0-47.0) Mean Corpuscular Volume 87 fL (79-100) Mean Corpuscular Hemoglobin 29 pg (25-35) Mean Corpuscular Hemoglobin Concent 34 g/dL (31-37) Red Cell Distribution Width 15.3 % (11.5-14.5) Platelet Count 267 x10^3/uL (140-400) Neutrophils (%) (Auto) 71 % (31-73) Lymphocytes (%) (Auto) 18 % (24-48) Monocytes (%) (Auto) 7 % (0-9) Eosinophils (%) (Auto) 3 % (0-3) Basophils (%) (Auto) 1 % (0-3) Neutrophils # (Auto) 5.4 x10^3uL (1.8-7.7) Lymphocytes # (Auto) 1.4 x10^3/uL (1.0-4.8) Monocytes # (Auto) 0.5 x10^3/uL (0.0-1.1) Eosinophils # (Auto) 0.2 x10^3/uL (0.0-0.7) Basophils # (Auto) 0.0 x10^3/uL (0.0-0.2) Sodium Level 142 mmol/L (136-145) Potassium Level 4.4 mmol/L (3.5-5.1) Chloride Level 109 mmol/L (98-107) Carbon Dioxide Level 22 mmol/L (21-32) Anion Gap 11 (6-14) Blood Urea Nitrogen 22 mg/dL (7-20) Creatinine 0.8 mg/dL (0.6-1.0) Estimated GFR (Cockcroft-Gault) 75.6 Glucose Level 93 mg/dL (70-99) Calcium Level 9.1 mg/dL (8.5-10.1) Glucose (Fingerstick) 83 mg/dL (70-99) Problem List Problems Medical Problems: (1) Non-pressure chronic ulcer of left calf with fat layer exposed Status: Acute (2) Peripheral vascular disease Status: Acute (3) Type 2 diabetes mellitus Status: Acute Problems: JANUSZ STARK APRN Dec 20, 2016 10:05
--- NOTE | 2016-12-20 10:30 | RAD ---
MRI of the left lower leg without and with contrast 12/19/2016 Clinical history: Soft tissue swelling involving the left leg with nonhealing wound. Technique: Unenhanced T1-weighted and inversion recovery sagittal, axial and coronal images of the left lower extremity extending from the inferior left knee to involve the majority left calf and left ankle were obtained. After the intravenous administration of 14 cc of Gadavist, enhanced fat saturated T1-weighted sagittal, axial and coronal images were obtained. Findings: Comparison study is dated 08/29/2015. Diffuse soft tissue swelling and edema is seen within the subcutaneous fat of the left leg and left ankle. No abnormal fluid collection is seen to suggest evidence of an abscess. No findings are seen to suggest evidence of osteomyelitis. No ligamentous or tendinous disruption is noted. Impression: There is no MRI evidence of osteomyelitis involving the visualized portions of the left leg.
[2016-12-20 11:00] VITALS: BP 104/72
[2016-12-20] MEDS: DOCUSATE SODIUM 100 MG CAPSULE. PO PRN (13:26)
--- NOTE | 2016-12-20 13:33 | PDOC ---
PROGRESS NOTES Chief Complaint Chief Complaint left leg unhealing ulcer, dm2 h/o multiple bl leg dvt , PE, IVC filter, on eliquis htn hld anxiety d/o NOS morbid obesity, BMI 42 PVD History of Present Illness History of Present Illness vascular, id consult add bcx, wound cx cont vanco, cefepime MRI reassuring, does not appear to be osteo ssi, check hba1c , elevate left leg as able pain control OK Vitals Vitals Vital Signs Date Time Temp Pulse Resp B/P (MAP) Pulse Ox O2 Delivery O2 Flow Rate FiO2 12/20/16 11:00 97.9 61 18 104/72 (83) 94 Room Air 97.9 Physical Exam General: Alert, Oriented X3, Cooperative, No acute distress Heart: Regular rate, No murmurs Lungs: Clear Abdomen: Normal bowel sounds, No tenderness Extremities: No clubbing Skin: Other Labs LABS Laboratory Tests Test 12/19/16 14:15 12/19/16 16:17 12/19/16 17:58 12/19/16 21:29 White Blood Count 8.0 x10^3/uL (4.0-11.0) Red Blood Count 4.16 x10^6/uL (3.50-5.40) Hemoglobin 12.0 g/dL (12.0-15.5) Hematocrit 35.5 % (36.0-47.0) Mean Corpuscular Volume 86 fL (79-100) Mean Corpuscular Hemoglobin 29 pg (25-35) Mean Corpuscular Hemoglobin Concent 34 g/dL (31-37) Red Cell Distribution Width 15.1 % (11.5-14.5) Platelet Count 272 x10^3/uL (140-400) Neutrophils (%) (Auto) 70 % (31-73) Lymphocytes (%) (Auto) 21 % (24-48) Monocytes (%) (Auto) 7 % (0-9) Eosinophils (%) (Auto) 2 % (0-3) Basophils (%) (Auto) 1 % (0-3) Neutrophils # (Auto) 5.6 x10^3uL (1.8-7.7) Lymphocytes # (Auto) 1.6 x10^3/uL (1.0-4.8) Monocytes # (Auto) 0.6 x10^3/uL (0.0-1.1) Eosinophils # (Auto) 0.2 x10^3/uL (0.0-0.7) Basophils # (Auto) 0.1 x10^3/uL (0.0-0.2) Sodium Level 141 mmol/L (136-145) Potassium Level 3.8 mmol/L (3.5-5.1) Chloride Level 106 mmol/L (98-107) Carbon Dioxide Level 24 mmol/L (21-32) Anion Gap 11 (6-14) Blood Urea Nitrogen 26 mg/dL (7-20) Creatinine 1.1 mg/dL (0.6-1.0) Estimated GFR (Cockcroft-Gault) 52.4 BUN/Creatinine Ratio 24 (6-20) Glucose Level 103 mg/dL (70-99) Calcium Level 9.3 mg/dL (8.5-10.1) Total Bilirubin 0.4 mg/dL (0.2-1.0) Aspartate Amino Transf (AST/SGOT) 22 U/L (15-37) Alanine Aminotransferase (ALT/SGPT) 17 U/L (14-59) Alkaline Phosphatase 65 U/L (46-116) Total Protein 6.9 g/dL (6.4-8.2) Albumin 3.6 g/dL (3.4-5.0) Albumin/Globulin Ratio 1.1 (1.0-1.7) Glucose (Fingerstick) 82 mg/dL (70-99) 113 mg/dL (70-99) Nasal Screen MRSA (PCR) Negative (Negative) Test 12/20/16 05:17 12/20/16 07:56 12/20/16 11:15 White Blood Count 7.7 x10^3/uL (4.0-11.0) Red Blood Count 4.49 x10^6/uL (3.50-5.40) Hemoglobin 13.2 g/dL (12.0-15.5) Hematocrit 39.2 % (36.0-47.0) Mean Corpuscular Volume 87 fL (79-100) Mean Corpuscular Hemoglobin 29 pg (25-35) Mean Corpuscular Hemoglobin Concent 34 g/dL (31-37) Red Cell Distribution Width 15.3 % (11.5-14.5) Platelet Count 267 x10^3/uL (140-400) Neutrophils (%) (Auto) 71 % (31-73) Lymphocytes (%) (Auto) 18 % (24-48) Monocytes (%) (Auto) 7 % (0-9) Eosinophils (%) (Auto) 3 % (0-3) Basophils (%) (Auto) 1 % (0-3) Neutrophils # (Auto) 5.4 x10^3uL (1.8-7.7) Lymphocytes # (Auto) 1.4 x10^3/uL (1.0-4.8) Monocytes # (Auto) 0.5 x10^3/uL (0.0-1.1) Eosinophils # (Auto) 0.2 x10^3/uL (0.0-0.7) Basophils # (Auto) 0.0 x10^3/uL (0.0-0.2) Sodium Level 142 mmol/L (136-145) Potassium Level 4.4 mmol/L (3.5-5.1) Chloride Level 109 mmol/L (98-107) Carbon Dioxide Level 22 mmol/L (21-32) Anion Gap 11 (6-14) Blood Urea Nitrogen 22 mg/dL (7-20) Creatinine 0.8 mg/dL (0.6-1.0) Estimated GFR (Cockcroft-Gault) 75.6 Glucose Level 93 mg/dL (70-99) Calcium Level 9.1 mg/dL (8.5-10.1) Glucose (Fingerstick) 83 mg/dL (70-99) 120 mg/dL (70-99) Review of Systems Review of Systems pain, weakness anxiety is high Assessment and Plan Assessmemt and Plan Problems Medical Problems: (1) Non-pressure chronic ulcer of left calf with fat layer exposed Status: Acute (2) Peripheral vascular disease Status: Acute (3) Type 2 diabetes mellitus Status: Acute Problems: Comment Review of Relevant I have reviewed the following items claribel (where applicable) has been applied. Labs Laboratory Tests Test 12/19/16 14:15 12/19/16 16:17 12/19/16 17:58 12/19/16 21:29 White Blood Count 8.0 x10^3/uL (4.0-11.0) Red Blood Count 4.16 x10^6/uL (3.50-5.40) Hemoglobin 12.0 g/dL (12.0-15.5) Hematocrit 35.5 % (36.0-47.0) Mean Corpuscular Volume 86 fL (79-100) Mean Corpuscular Hemoglobin 29 pg (25-35) Mean Corpuscular Hemoglobin Concent 34 g/dL (31-37) Red Cell Distribution Width 15.1 % (11.5-14.5) Platelet Count 272 x10^3/uL (140-400) Neutrophils (%) (Auto) 70 % (31-73) Lymphocytes (%) (Auto) 21 % (24-48) Monocytes (%) (Auto) 7 % (0-9) Eosinophils (%) (Auto) 2 % (0-3) Basophils (%) (Auto) 1 % (0-3) Neutrophils # (Auto) 5.6 x10^3uL (1.8-7.7) Lymphocytes # (Auto) 1.6 x10^3/uL (1.0-4.8) Monocytes # (Auto) 0.6 x10^3/uL (0.0-1.1) Eosinophils # (Auto) 0.2 x10^3/uL (0.0-0.7) Basophils # (Auto) 0.1 x10^3/uL (0.0-0.2) Sodium Level 141 mmol/L (136-145) Potassium Level 3.8 mmol/L (3.5-5.1) Chloride Level 106 mmol/L (98-107) Carbon Dioxide Level 24 mmol/L (21-32) Anion Gap 11 (6-14) Blood Urea Nitrogen 26 mg/dL (7-20) Creatinine 1.1 mg/dL (0.6-1.0) Estimated GFR (Cockcroft-Gault) 52.4 BUN/Creatinine Ratio 24 (6-20) Glucose Level 103 mg/dL (70-99) Calcium Level 9.3 mg/dL (8.5-10.1) Total Bilirubin 0.4 mg/dL (0.2-1.0) Aspartate Amino Transf (AST/SGOT) 22 U/L (15-37) Alanine Aminotransferase (ALT/SGPT) 17 U/L (14-59) Alkaline Phosphatase 65 U/L (46-116) Total Protein 6.9 g/dL (6.4-8.2) Albumin 3.6 g/dL (3.4-5.0) Albumin/Globulin Ratio 1.1 (1.0-1.7) Glucose (Fingerstick) 82 mg/dL (70-99) 113 mg/dL (70-99) Nasal Screen MRSA (PCR) Negative (Negative) Test 12/20/16 05:17 12/20/16 07:56 12/20/16 11:15 White Blood Count 7.7 x10^3/uL (4.0-11.0) Red Blood Count 4.49 x10^6/uL (3.50-5.40) Hemoglobin 13.2 g/dL (12.0-15.5) Hematocrit 39.2 % (36.0-47.0) Mean Corpuscular Volume 87 fL (79-100) Mean Corpuscular Hemoglobin 29 pg (25-35) Mean Corpuscular Hemoglobin Concent 34 g/dL (31-37) Red Cell Distribution Width 15.3 % (11.5-14.5) Platelet Count 267 x10^3/uL (140-400) Neutrophils (%) (Auto) 71 % (31-73) Lymphocytes (%) (Auto) 18 % (24-48) Monocytes (%) (Auto) 7 % (0-9) Eosinophils (%) (Auto) 3 % (0-3) Basophils (%) (Auto) 1 % (0-3) Neutrophils # (Auto) 5.4 x10^3uL (1.8-7.7) Lymphocytes # (Auto) 1.4 x10^3/uL (1.0-4.8) Monocytes # (Auto) 0.5 x10^3/uL (0.0-1.1) Eosinophils # (Auto) 0.2 x10^3/uL (0.0-0.7) Basophils # (Auto) 0.0 x10^3/uL (0.0-0.2) Sodium Level 142 mmol/L (136-145) Potassium Level 4.4 mmol/L (3.5-5.1) Chloride Level 109 mmol/L (98-107) Carbon Dioxide Level 22 mmol/L (21-32) Anion Gap 11 (6-14) Blood Urea Nitrogen 22 mg/dL (7-20) Creatinine 0.8 mg/dL (0.6-1.0) Estimated GFR (Cockcroft-Gault) 75.6 Glucose Level 93 mg/dL (70-99) Calcium Level 9.1 mg/dL (8.5-10.1) Glucose (Fingerstick) 83 mg/dL (70-99) 120 mg/dL (70-99) Laboratory Tests Test 12/19/16 14:15 12/19/16 16:17 12/19/16 17:58 12/19/16 21:29 White Blood Count 8.0 x10^3/uL (4.0-11.0) Red Blood Count 4.16 x10^6/uL (3.50-5.40) Hemoglobin 12.0 g/dL (12.0-15.5) Hematocrit 35.5 % (36.0-47.0) Mean Corpuscular Volume 86 fL (79-100) Mean Corpuscular Hemoglobin 29 pg (25-35) Mean Corpuscular Hemoglobin Concent 34 g/dL (31-37) Red Cell Distribution Width 15.1 % (11.5-14.5) Platelet Count 272 x10^3/uL (140-400) Neutrophils (%) (Auto) 70 % (31-73) Lymphocytes (%) (Auto) 21 % (24-48) Monocytes (%) (Auto) 7 % (0-9) Eosinophils (%) (Auto) 2 % (0-3) Basophils (%) (Auto) 1 % (0-3) Neutrophils # (Auto) 5.6 x10^3uL (1.8-7.7) Lymphocytes # (Auto) 1.6 x10^3/uL (1.0-4.8) Monocytes # (Auto) 0.6 x10^3/uL (0.0-1.1) Eosinophils # (Auto) 0.2 x10^3/uL (0.0-0.7) Basophils # (Auto) 0.1 x10^3/uL (0.0-0.2) Sodium Level 141 mmol/L (136-145) Potassium Level 3.8 mmol/L (3.5-5.1) Chloride Level 106 mmol/L (98-107) Carbon Dioxide Level 24 mmol/L (21-32) Anion Gap 11 (6-14) Blood Urea Nitrogen 26 mg/dL (7-20) Creatinine 1.1 mg/dL (0.6-1.0) Estimated GFR (Cockcroft-Gault) 52.4 BUN/Creatinine Ratio 24 (6-20) Glucose Level 103 mg/dL (70-99) Calcium Level 9.3 mg/dL (8.5-10.1) Total Bilirubin 0.4 mg/dL (0.2-1.0) Aspartate Amino Transf (AST/SGOT) 22 U/L (15-37) Alanine Aminotransferase (ALT/SGPT) 17 U/L (14-59) Alkaline Phosphatase 65 U/L (46-116) Total Protein 6.9 g/dL (6.4-8.2) Albumin 3.6 g/dL (3.4-5.0) Albumin/Globulin Ratio 1.1 (1.0-1.7) Glucose (Fingerstick) 82 mg/dL (70-99) 113 mg/dL (70-99) Nasal Screen MRSA (PCR) Negative (Negative) Test 12/20/16 05:17 12/20/16 07:56 12/20/16 11:15 White Blood Count 7.7 x10^3/uL (4.0-11.0) Red Blood Count 4.49 x10^6/uL (3.50-5.40) Hemoglobin 13.2 g/dL (12.0-15.5) Hematocrit 39.2 % (36.0-47.0) Mean Corpuscular Volume 87 fL (79-100) Mean Corpuscular Hemoglobin 29 pg (25-35) Mean Corpuscular Hemoglobin Concent 34 g/dL (31-37) Red Cell Distribution Width 15.3 % (11.5-14.5) Platelet Count 267 x10^3/uL (140-400) Neutrophils (%) (Auto) 71 % (31-73) Lymphocytes (%) (Auto) 18 % (24-48) Monocytes (%) (Auto) 7 % (0-9) Eosinophils (%) (Auto) 3 % (0-3) Basophils (%) (Auto) 1 % (0-3) Neutrophils # (Auto) 5.4 x10^3uL (1.8-7.7) Lymphocytes # (Auto) 1.4 x10^3/uL (1.0-4.8) Monocytes # (Auto) 0.5 x10^3/uL (0.0-1.1) Eosinophils # (Auto) 0.2 x10^3/uL (0.0-0.7) Basophils # (Auto) 0.0 x10^3/uL (0.0-0.2) Sodium Level 142 mmol/L (136-145) Potassium Level 4.4 mmol/L (3.5-5.1) Chloride Level 109 mmol/L (98-107) Carbon Dioxide Level 22 mmol/L (21-32) Anion Gap 11 (6-14) Blood Urea Nitrogen 22 mg/dL (7-20) Creatinine 0.8 mg/dL (0.6-1.0) Estimated GFR (Cockcroft-Gault) 75.6 Glucose Level 93 mg/dL (70-99) Calcium Level 9.1 mg/dL (8.5-10.1) Glucose (Fingerstick) 83 mg/dL (70-99) 120 mg/dL (70-99) Microbiology 12/19/16 Gram Stain - Final, Complete Medications Current Medications Sodium Chloride 1,000 ml @ 100 mls/hr Q10H IV Last administered on 12/19/16 14:34; Start 12/19/16 at 13:33; Stop 12/19/16 at 23:32; Status DC Ondansetron HCl (Zofran) 4 mg PRN Q8HRS PRN IV NAUSEA/VOMITING; Start 12/19/16 at 14:45; Stop 12/20/16 at 14:44 Sodium Chloride 1,000 ml @ 100 mls/hr Q10H IV Last administered on 12/20/16 10:27; Start 12/19/16 at 14:45; Stop 12/20/16 at 14:44 Acetaminophen (Tylenol) 650 mg PRN Q4HRS PRN PO FEVER; Start 12/19/16 at 14:45 ; Stop 12/20/16 at 14:44 Morphine Sulfate 4 mg PRN Q2HR PRN IV PAIN Last administered on 12/19/16 19:42 ; Start 12/19/16 at 15:00 Morphine Sulfate 4 mg STK-MED ONCE .ROUTE ; Start 12/19/16 at 15:02; Stop at 15:03; Status DC Info (Do NOT chart on this placeholder) 1 each 1X ONCE MC ; Start 12/19/16 at 16:00; Stop 12/19/16 at 16:01; Status UNV Insulin Aspart (NovoLOG) 0-9 UNITS TIDWMEALS SQ ; Start 12/19/16 at 17:00 Dextrose (Dextrose 50%-Water Syringe) 12.5 gm PRN Q15MIN PRN IV SEE COMMENTS; Start 12/19/16 at 16:30 Alprazolam (Xanax) 1 mg TID PO Last administered on 12/20/16 13:26; Start at 17:00 Apixaban (Eliquis) 5 mg BID PO Last administered on 12/20/16 09:08; Start at 21:00 Docusate Sodium (Colace) 100 mg PRN DAILY PRN PO CONSTIPATION Last administered on 12/20/16 13:26; Start 12/19/16 at 16:30 Metoprolol Tartrate (Lopressor) 25 mg BID PO Last administered on 12/20/16 09: 01; Start 12/19/16 at 21:00 Polyethylene Glycol (miraLAX PACKET) 17 gm PRN DAILY PRN PO CONSTIPATION; Start 12/19/16 at 16:30 Simvastatin (Zocor) 40 mg QHS PO Last administered on 12/19/16 21:34; Start at 21:00 Gabapentin (Neurontin) 300 mg TID PO Last administered on 12/20/16 13:26; Start 12/19/16 at 17:00 Meclizine HCl (Antivert) 25 mg PRN TID PRN PO DIZZINESS; Start 12/19/16 at 16: 30 Paroxetine HCl (Paxil) 60 mg DAILY PO Last administered on 12/20/16 09:02; Start 12/20/16 at 09:00 Prochlorperazine Maleate (Compazine) 10 mg PRN Q6HRS PRN PO NAUSEA; Start 12/19 at 16:30 Zolpidem Tartrate (Ambien) 5 mg QHS PO Last administered on 12/19/16 21:35; Start 12/19/16 at 21:00 Vancomycin HCl (Vanco Per Pharmacy) 1 each PRN DAILY PRN MC SEE COMMENTS Last administered on 12/19/16 18:48; Start 12/19/16 at 16:30 Vancomycin HCl 2 gm/Sodium Chloride 500 ml @ 250 mls/hr 1X ONCE IV Last administered on 12/19/16 21:37; Start 12/19/16 at 17:00; Stop 12/19/16 at 18:59 ; Status DC Cefepime HCl 2 gm/ Sodium Chloride 100 ml @ 200 mls/hr Q8HRS IV Last administered on 12/20/16 13:27; Start 12/19/16 at 17:00 Lorazepam (Ativan) 1 mg 1X ONCE IV Last administered on 12/19/16 17:28; Start 12/19/16 at 17:15; Stop 12/19/16 at 17:16; Status DC Vancomycin HCl 1.75 gm/Sodium Chloride 500 ml @ 250 mls/hr Q24H IV ; Start at 20:00 Vancomycin HCl 1 each 1X ONCE MC ; Start 12/21/16 at 19:30; Stop 12/21/16 at 19 :31 Gadobutrol (Gadavist) 7 mmol 1X ONCE IV Last administered on 12/19/16 19:16; Start 12/19/16 at 19:00; Stop 12/19/16 at 19:01; Status DC Gadobutrol (Gadavist) 7 mmol 1X ONCE IV Last administered on 12/19/16 19:16; Start 12/19/16 at 19:00; Stop 12/19/16 at 19:01; Status DC Oxycodone/ Acetaminophen (Percocet 10/325) 1 tab PRN Q4HRS PRN PO pain Last administered on 12/20/16 09:05; Start 12/19/16 at 21:00 Active Scripts Active Oxycodone-Acetaminophen 10-325 (Oxycodone Hcl/Acetaminophen) 1 Each Tablet 1 Tab PO PRN Q4HRS PRN Reported Doxycycline Hyclate 100 Mg Tablet 100 Mg PO BID Metoprolol Tartrate 25 Mg Tablet 25 Mg PO BID Eliquis (Apixaban) 5 Mg Tablet 10 Mg PO DAILY Gabapentin 300 Mg Capsule 300 Mg PO TID Xanax (Alprazolam) 1 Mg Tablet 1 Tab PO TID Colace (Docusate Sodium) 100 Mg Capsule 100 Mg PO PRN DAILY PRN Miralax (Polyethylene Glycol 3350) 17 Gm Powd.pack 1 Packet PO DAILY PRN Meclizine Hcl 25 Mg Tablet 1 Tab PO TID PRN Compazine (Prochlorperazine Maleate) 10 Mg Tablet 10 Mg PO 1X PRN PRN Ambien (Zolpidem Tartrate) 10 Mg Tablet 1 Tab PO QHS Paroxetine Hcl 30 Mg Tablet 2 Tab PO DAILY Simvastatin 40 Mg Tablet 1 Tab PO QHS Vitals/I & O Vital Sign - Last 24 Hours 12/19/16 12/19/16 12/19/16 12/19/16 13:50 14:28 14:50 15:05 Pulse 54 56 56 Resp 20 18 18 18 B/P (MAP) 155/85 (108) 166/80 (108) 146/70 (95) Pulse Ox 98 98 97 96 O2 Delivery Room Air Room Air Room Air 12/19/16 12/19/16 12/19/16 12/19/16 15:30 15:30 16:00 17:29 Temp 96.1 96.1 96.1 96.1 Pulse 66 66 Resp 18 18 B/P (MAP) 150/78 (102) 150/78 (102) Pulse Ox 98 98 O2 Delivery Room Air Room Air Room Air Room Air 12/19/16 12/19/16 12/19/16 12/19/16 19:00 19:42 20:30 21:35 Temp 97.6 97.6 Pulse 69 Resp 20 16 17 16 B/P (MAP) 134/90 (105) Pulse Ox 95 98 98 98 O2 Delivery Room Air Room Air Room Air Room Air 12/19/16 12/19/16 12/20/16 12/20/16 21:36 23:00 03:00 04:23 Temp 97.7 97.5 97.7 97.5 Pulse 69 56 107 Resp 20 20 17 B/P (MAP) 134/90 107/73 (84) 144/85 (104) Pulse Ox 96 100 98 O2 Delivery Room Air Room Air Room Air 12/20/16 12/20/16 12/20/16 12/20/16 05:30 07:00 08:30 09:01 Temp 97.5 97.5 Pulse 100 100 Resp 18 B/P (MAP) 126/75 (92) 126/75 Pulse Ox 98 95 O2 Delivery Room Air Room Air 12/20/16 12/20/16 12/20/16 09:05 10:01 11:00 Temp 97.9 97.9 Pulse 61 Resp 18 18 18 B/P (MAP) 104/72 (83) Pulse Ox 94 O2 Delivery Room Air Room Air Room Air Intake and Output 12/20/16 12/20/16 12/21/16 15:00 23:00 07:00 Intake Total 120 ml Balance 120 ml RADHIKA ZIEGLRE MD Dec 20, 2016 13:33
--- NOTE | 2016-12-20 16:39 | PDOC ---
Provider Note Provider Note Vascular Surgery Consult dictated 51 year old female with left lateral lower leg large open chronic venous stasis/ diabetic wound. The wound has necrotic tissue and localized cellulitis. Recommend surgical debridement of the wound in the OR thursday. Will hold anticoagulation. Will need to continue aggressive wound care and compression therapy. Antibiotics per ID. FREDA THOMPSON MD Dec 20, 2016 16:39
[2016-12-20 19:00] VITALS: BP 124/73
[2016-12-20] MEDS: MICAFUNGIN 100 MG in IV DEXTROSE 5% 100 ML IV SCH (19:43)
--- NOTE | 2016-12-20 20:19 | CONS ---
DATE OF CONSULTATION: 12/20/2016 CHIEF COMPLAINT: Left leg chronic wound with infection. HISTORY OF PRESENT ILLNESS: The patient is a 51-year-old female with a chronic left lateral lower extremity open wound, which has been present for approximately 2 years. She has had long-term wound care at [facility] and debridement at [facility] along with Dr. Quick. She states that this wound has nearly healed in the past, but then often reopens when compression is . She currently has a very large open wound on her left lateral lower leg with necrotic tissue. [facility] was not able to debride her yesterday because of pain and had her admitted to the hospital. She is receiving antibiotics. She reports no other wounds in her left leg or in her right leg. REVIEW OF SYSTEMS: Otherwise, negative. PAST MEDICAL HISTORY: Includes: 1. History of multiple bilateral lower extremity deep venous thrombosis. 2. Pulmonary embolus. 3. IVC filter. 4. Chronic anticoagulation with Eliquis. 5. Chronic left lower extremity venous stasis wound. 6. Diabetes mellitus. 7. Depression and anxiety. PAST SURGICAL HISTORY: Includes, 1. Appendectomy. 2. She reports bilateral lower extremity venous ablation procedures. 3. IVC filter. 4. Gastrectomy sleeve. 5. Left lower leg wound debridement. ALLERGIES AND MEDICATIONS: Please see her full MAR. PHYSICAL EXAMINATION: GENERAL: The patient is awake and alert, currently she is in no apparent distress. VITAL SIGNS: She is afebrile. Her vital signs are stable. ABDOMEN: Obese, but soft. EXTREMITIES: Her left lower extremity has palpable dorsalis pedis and posterior tibial pulse. On the lower lateral leg, she has a large open wound with localized surrounding erythema, there are areas of necrotic tissue within the wound and is very painful to the touch. I am unable to do any debridement at the bedside. The wound is fairly superficial. There are no other areas of tissue breakdown in her legs. Her right lower extremity is warm with palpable pedal pulses and no tissue breakdown. IMPRESSION: 1. Chronic left lower extremity lateral leg wound, currently with necrotic tissue and localized cellulitis. 2. History of venous insufficiency and chronic swelling of the left leg. 3. Chronic anticoagulation with Eliquis. PLAN: I recommend surgical debridement of her left leg wound. This will have to be done in the operating room since she has very significant pain associated with palpation of the area. This will be scheduled for Thursday. She will need to continue aggressive wound care at [facility] along with aggressive compression therapy. She has a history of venous disease with deep venous thrombosis, on chronic anticoagulation. Per report, she has had surgical venous ablations of her saphenous veins. I am happy to give a second opinion with venous ultrasound testing in my office in the future if she wishes for further evaluation. We will hold the Eliquis for upcoming surgical debridement. FREDA THOMPSON MD DR: MARITZA/myra JOB#: [id number] / [id number]
[2016-12-20] MEDS: SIMVASTATIN 40 MG TABLET. PO SCH (20:38)
[2016-12-20] MEDS: ZOLPIDEM 5 MG TABLET. PO SCH (20:38)
[2016-12-20] MEDS: VANCOMYCIN 1.75 GM in IV NORMAL SALINE 500ML BAG 500 ML IV SCH (20:39)
--- NOTE | 2016-12-20 21:44 | CONS ---
DATE OF CONSULTATION: 12/20/2016 INFECTIOUS DISEASE CONSULT HISTORY OF PRESENT ILLNESS: The patient is a 51-year-old female with a past medical history of recently diagnosed type 2 diabetes. She presents with an ulcer of the left lower extremity for the last 2-1/2 years, which has undergone multiple debridements, but is not healing. She says the ulcer started when she slipped and fell on the sidewalk and scraped her leg. When she got home, she put Neosporin on it, but subsequently that area developed an ulcer that was cultured and found to be MRSA. At that time, she had a debridement at . She underwent both IV and p.o. antibiotics and was even sent home on IV antibiotics every 8 hours. However, the ulcer gets to the point where it almost heals and then it opens up again. During the treatment for this ulcer, she was diagnosed with type 2 diabetes and was started on metformin. More recently, she has not been taking metformin because she said her blood sugar was extremely well controlled. She also lost her insurance and therefore was unable to afford the metformin. She has been following at [facility] and states that the ulcer almost got healed, but then subsequently opened up again and so she is admitted for debridement and further management. ID is consulted to assist with antibiotic management. Of note, cultures in July 2016 revealed MRSA and pseudomonas. She has been taking doxycycline. She has not improved on that. The area is extremely painful. She has had multiple debridements; however, she denies having any fever or chills and is admitted for antibiotic care. PAST MEDICAL HISTORY: Significant for type 2 diabetes. She has a history of MRSA, especially in that wound. She has a history of bilateral lower extremity DVTs. She has had a PE and has an IVC filter in situ. She also has hypertension, hyperlipidemia, generalized anxiety disorder, morbid obesity, peripheral vascular disease. PAST SURGICAL HISTORY: Significant for appendectomy, multiple lower extremity debridements, IVC filter placement, venous ablation therapy. FAMILY HISTORY: Significant for hypertension. There is no family history of blood clots or miscarriages. SOCIAL HISTORY: As noted earlier, the patient has started a new job. She does not smoke or take alcohol and she does not use any recreational drugs. REVIEW OF SYSTEMS: The patient is extremely pleasant and tries to hide pain, but on entry to the room, she seemed to be in a lot of pain from the left lower extremity. Other than that, the rest of the 10-point review of systems is essentially negative. OBJECTIVE: VITAL SIGNS: Revealed temperature of 97.8, pulse rate of 80, respiratory rate of 20, blood pressure of 141/87. HEENT: Eyes, nose, mouth and throat and ears are unremarkable. NECK: Supple, with no jugular venous distention, carotid bruits or thyromegaly. CHEST: Equal chest excursion bilaterally. Chest wall is normal. LUNGS: Clear to auscultation bilaterally. CARDIOVASCULAR: Heart reveals S1 and S2, which are regular. There are no murmurs. ABDOMEN: Obese, soft, nontender with no hepatosplenomegaly. SKIN: Warm and dry with normal skin turgor. There are no rashes. EXTREMITIES: The ulcer is seen on the lateral aspect of the left lower extremity. It involves about two-thirds of the circumference of the lower extremities. It measures about 8 x 8 cm. There is muscle exposed in the center. There is a greenish discharge and there is no odor noted. She has a deep surrounding cellulitis with erythematous induration of the posterior aspect of the hahn. Her toes are within normal limits. She has no popliteal or axillary adenopathy. All her toes do show chronic onychomycosis. NEUROLOGIC: She is otherwise awake, alert, oriented with no gross focal neurological deficits noted. LABORATORY DATA: Show a hemoglobin of 12, hematocrit of 36, white cell count of 8.0, platelet count of 272. She has 70 polys and 21 lymphocytes. Sodium is 142, potassium is 4.4, chloride is 109, CO2 is 22, BUN is 22, creatinine 0.8, GFR is 76. The drainage of the leg that was cultured showed gram-positive cocci with occasional white cells and many red blood cells. In summary, this is a 51-year-old morbidly obese female, BMI of 42, who presents with a nonhealing ulcer of the left lower extremity. This ulcer has previously been noted to be infected with MRSA and more recently pseudomonas. ASSESSMENT: 1. Chronic ulceration of the left lower extremity. 2. Peripheral vascular disease. 3. Venous insufficiency. 4. Coagulopathy, status post bilateral deep venous thrombosis and pulmonary embolism. 5. Type 2 diabetes. PLAN: The patient has had a tetanus shot about a year ago. She has been started on vancomycin and will be continued on that. Cultures done are pending. She is also on cefepime to cover for possible pseudomonas due to greenish drainage. The patient is encouraged to lose weight and if need be, use metformin, even if at a lower dose rather than just discontinuing it completely. Recurrence of hypoglycemia is likely to make healing even more difficult. Because of the onychomycosis of her toes, I would like to start her on fluconazole or micafungin to cover for any possibility that would be fungal infection in that area. If fungal infection is not found, then, the antifungal can be discontinued. Thank you for consulting. I will continue following this lady with you. NITIN ANTONIO MD DR: SHAHIDA/myra JOB#: [id number] / [id number]
[2016-12-20 23:00] VITALS: BP 133/82
[2016-12-21 03:00] VITALS: BP 122/78
[2016-12-21] MEDS: CEFEPIME HCL 2 GM in IV NORMAL SALINE 100ML 100 ML IV SCH ×3 (05:23→20:54)
[2016-12-21 07:00] VITALS: BP 126/76
[2016-12-21] MEDS: INSULIN ASPART 300 UNITS/3 ML INSULN.PEN SQ SCH ×3 (08:00→17:00)
[2016-12-21] MEDS: METOPROLOL TART IMMED RELEASE 25 MG TABLET. PO SCH ×2 (09:01→20:54)
[2016-12-21] MEDS: ALPRAZolam 1 MG TABLET PO SCH ×3 (09:02→20:54)
[2016-12-21] MEDS: GABAPENTIN 300 MG CAPSULE. PO SCH ×3 (09:02→20:54)
[2016-12-21] MEDS: oxyCODONE/APAP 10/325 1 TAB TABLET PO PRN ×3 (09:03→19:43)
[2016-12-21] MEDS: PARoxetine 20 MG TABLET PO SCH (09:04)
[2016-12-21 11:00] VITALS: BP 117/63
--- NOTE | 2016-12-21 11:10 | PDOC ---
PROGRESS NOTES Chief Complaint Chief Complaint left leg unhealing ulcer, dm2 h/o multiple bl leg dvt , PE, IVC filter, on eliquis htn hld anxiety d/o NOS morbid obesity, BMI 42 PVD History of Present Illness History of Present Illness pain a little better today vascular, plans OR for debridement tomorrow, hold eliquis wound cx cont vanco, cefepime MRI reassuring, ssi, hba1c pending , elevate left leg as able Vitals Vitals Vital Signs Date Time Temp Pulse Resp B/P (MAP) Pulse Ox O2 Delivery O2 Flow Rate FiO2 12/21/16 09:03 18 Room Air 12/21/16 09:01 64 126/76 12/21/16 07:00 97.8 95 97.8 Physical Exam General: Alert, Oriented X3, Cooperative, No acute distress Heart: Regular rate, No murmurs Lungs: Clear Abdomen: Normal bowel sounds, No tenderness Extremities: No clubbing Skin: Other Labs LABS Laboratory Tests Test 12/20/16 11:15 12/20/16 16:12 12/20/16 20:30 12/21/16 07:38 Glucose (Fingerstick) 120 mg/dL (70-99) 92 mg/dL (70-99) 133 mg/dL (70-99) 81 mg/dL (70-99) Test 12/21/16 10:27 Glucose (Fingerstick) 99 mg/dL (70-99) Review of Systems Review of Systems pain, some nausea slept ok no stool Assessment and Plan Assessmemt and Plan Problems Medical Problems: (1) Non-pressure chronic ulcer of left calf with fat layer exposed Status: Acute (2) Peripheral vascular disease Status: Acute (3) Type 2 diabetes mellitus Status: Acute Problems: Comment Review of Relevant I have reviewed the following items claribel (where applicable) has been applied. Labs Laboratory Tests Test 12/19/16 14:15 12/19/16 16:17 12/19/16 17:58 12/19/16 21:29 White Blood Count 8.0 x10^3/uL (4.0-11.0) Red Blood Count 4.16 x10^6/uL (3.50-5.40) Hemoglobin 12.0 g/dL (12.0-15.5) Hematocrit 35.5 % (36.0-47.0) Mean Corpuscular Volume 86 fL (79-100) Mean Corpuscular Hemoglobin 29 pg (25-35) Mean Corpuscular Hemoglobin Concent 34 g/dL (31-37) Red Cell Distribution Width 15.1 % (11.5-14.5) Platelet Count 272 x10^3/uL (140-400) Neutrophils (%) (Auto) 70 % (31-73) Lymphocytes (%) (Auto) 21 % (24-48) Monocytes (%) (Auto) 7 % (0-9) Eosinophils (%) (Auto) 2 % (0-3) Basophils (%) (Auto) 1 % (0-3) Neutrophils # (Auto) 5.6 x10^3uL (1.8-7.7) Lymphocytes # (Auto) 1.6 x10^3/uL (1.0-4.8) Monocytes # (Auto) 0.6 x10^3/uL (0.0-1.1) Eosinophils # (Auto) 0.2 x10^3/uL (0.0-0.7) Basophils # (Auto) 0.1 x10^3/uL (0.0-0.2) Sodium Level 141 mmol/L (136-145) Potassium Level 3.8 mmol/L (3.5-5.1) Chloride Level 106 mmol/L (98-107) Carbon Dioxide Level 24 mmol/L (21-32) Anion Gap 11 (6-14) Blood Urea Nitrogen 26 mg/dL (7-20) Creatinine 1.1 mg/dL (0.6-1.0) Estimated GFR (Cockcroft-Gault) 52.4 BUN/Creatinine Ratio 24 (6-20) Glucose Level 103 mg/dL (70-99) Calcium Level 9.3 mg/dL (8.5-10.1) Total Bilirubin 0.4 mg/dL (0.2-1.0) Aspartate Amino Transf (AST/SGOT) 22 U/L (15-37) Alanine Aminotransferase (ALT/SGPT) 17 U/L (14-59) Alkaline Phosphatase 65 U/L (46-116) Total Protein 6.9 g/dL (6.4-8.2) Albumin 3.6 g/dL (3.4-5.0) Albumin/Globulin Ratio 1.1 (1.0-1.7) Glucose (Fingerstick) 82 mg/dL (70-99) 113 mg/dL (70-99) Nasal Screen MRSA (PCR) Negative (Negative) Test 12/20/16 05:17 12/20/16 07:56 12/20/16 11:15 12/20/16 16:12 White Blood Count 7.7 x10^3/uL (4.0-11.0) Red Blood Count 4.49 x10^6/uL (3.50-5.40) Hemoglobin 13.2 g/dL (12.0-15.5) Hematocrit 39.2 % (36.0-47.0) Mean Corpuscular Volume 87 fL (79-100) Mean Corpuscular Hemoglobin 29 pg (25-35) Mean Corpuscular Hemoglobin Concent 34 g/dL (31-37) Red Cell Distribution Width 15.3 % (11.5-14.5) Platelet Count 267 x10^3/uL (140-400) Neutrophils (%) (Auto) 71 % (31-73) Lymphocytes (%) (Auto) 18 % (24-48) Monocytes (%) (Auto) 7 % (0-9) Eosinophils (%) (Auto) 3 % (0-3) Basophils (%) (Auto) 1 % (0-3) Neutrophils # (Auto) 5.4 x10^3uL (1.8-7.7) Lymphocytes # (Auto) 1.4 x10^3/uL (1.0-4.8) Monocytes # (Auto) 0.5 x10^3/uL (0.0-1.1) Eosinophils # (Auto) 0.2 x10^3/uL (0.0-0.7) Basophils # (Auto) 0.0 x10^3/uL (0.0-0.2) Sodium Level 142 mmol/L (136-145) Potassium Level 4.4 mmol/L (3.5-5.1) Chloride Level 109 mmol/L (98-107) Carbon Dioxide Level 22 mmol/L (21-32) Anion Gap 11 (6-14) Blood Urea Nitrogen 22 mg/dL (7-20) Creatinine 0.8 mg/dL (0.6-1.0) Estimated GFR (Cockcroft-Gault) 75.6 Glucose Level 93 mg/dL (70-99) Hemoglobin A1c 5.3 % (4.8-5.6) Calcium Level 9.1 mg/dL (8.5-10.1) Glucose (Fingerstick) 83 mg/dL (70-99) 120 mg/dL (70-99) 92 mg/dL (70-99) Test 12/20/16 20:30 12/21/16 07:38 12/21/16 10:27 Glucose (Fingerstick) 133 mg/dL (70-99) 81 mg/dL (70-99) 99 mg/dL (70-99) Laboratory Tests Test 12/20/16 11:15 12/20/16 16:12 12/20/16 20:30 12/21/16 07:38 Glucose (Fingerstick) 120 mg/dL (70-99) 92 mg/dL (70-99) 133 mg/dL (70-99) 81 mg/dL (70-99) Test 12/21/16 10:27 Glucose (Fingerstick) 99 mg/dL (70-99) Microbiology 12/20/16 Blood Culture - Preliminary, Resulted NO GROWTH AFTER 1 DAY 12/19/16 Gram Stain - Final, Complete Medications Current Medications Sodium Chloride 1,000 ml @ 100 mls/hr Q10H IV Last administered on 12/19/16 14:34; Start 12/19/16 at 13:33; Stop 12/19/16 at 23:32; Status DC Ondansetron HCl (Zofran) 4 mg PRN Q8HRS PRN IV NAUSEA/VOMITING; Start 12/19/16 at 14:45; Stop 12/20/16 at 14:44; Status DC Sodium Chloride 1,000 ml @ 100 mls/hr Q10H IV Last administered on 12/20/16 10:27; Start 12/19/16 at 14:45; Stop 12/20/16 at 14:44; Status DC Acetaminophen (Tylenol) 650 mg PRN Q4HRS PRN PO FEVER; Start 12/19/16 at 14:45 ; Stop 12/20/16 at 14:44; Status DC Morphine Sulfate 4 mg PRN Q2HR PRN IV PAIN Last administered on 12/19/16 19:42 ; Start 12/19/16 at 15:00 Morphine Sulfate 4 mg STK-MED ONCE .ROUTE ; Start 12/19/16 at 15:02; Stop at 15:03; Status DC Info (Do NOT chart on this placeholder) 1 each 1X ONCE MC ; Start 12/19/16 at 16:00; Stop 12/19/16 at 16:01; Status UNV Insulin Aspart (NovoLOG) 0-9 UNITS TIDWMEALS SQ ; Start 12/19/16 at 17:00 Dextrose (Dextrose 50%-Water Syringe) 12.5 gm PRN Q15MIN PRN IV SEE COMMENTS; Start 12/19/16 at 16:30 Alprazolam (Xanax) 1 mg TID PO Last administered on 12/21/16 09:02; Start at 17:00 Apixaban (Eliquis) 5 mg BID PO Last administered on 12/20/16 09:08; Start at 21:00; Stop 12/20/16 at 16:42; Status DC Docusate Sodium (Colace) 100 mg PRN DAILY PRN PO CONSTIPATION Last administered on 12/20/16 13:26; Start 12/19/16 at 16:30 Metoprolol Tartrate (Lopressor) 25 mg BID PO Last administered on 12/21/16 09: 01; Start 12/19/16 at 21:00 Polyethylene Glycol (miraLAX PACKET) 17 gm PRN DAILY PRN PO CONSTIPATION; Start 12/19/16 at 16:30 Simvastatin (Zocor) 40 mg QHS PO Last administered on 12/20/16 20:38; Start at 21:00 Gabapentin (Neurontin) 300 mg TID PO Last administered on 12/21/16 09:02; Start 12/19/16 at 17:00 Meclizine HCl (Antivert) 25 mg PRN TID PRN PO DIZZINESS; Start 12/19/16 at 16: 30 Paroxetine HCl (Paxil) 60 mg DAILY PO Last administered on 12/21/16 09:04; Start 12/20/16 at 09:00 Prochlorperazine Maleate (Compazine) 10 mg PRN Q6HRS PRN PO NAUSEA; Start 12/19 at 16:30 Zolpidem Tartrate (Ambien) 5 mg QHS PO Last administered on 12/20/16 20:38; Start 12/19/16 at 21:00 Vancomycin HCl (Vanco Per Pharmacy) 1 each PRN DAILY PRN MC SEE COMMENTS Last administered on 12/19/16 18:48; Start 12/19/16 at 16:30 Vancomycin HCl 2 gm/Sodium Chloride 500 ml @ 250 mls/hr 1X ONCE IV Last administered on 12/19/16 21:37; Start 12/19/16 at 17:00; Stop 12/19/16 at 18:59 ; Status DC Cefepime HCl 2 gm/ Sodium Chloride 100 ml @ 200 mls/hr Q8HRS IV Last administered on 12/21/16 05:23; Start 12/19/16 at 17:00 Lorazepam (Ativan) 1 mg 1X ONCE IV Last administered on 12/19/16 17:28; Start 12/19/16 at 17:15; Stop 12/19/16 at 17:16; Status DC Vancomycin HCl 1.75 gm/Sodium Chloride 500 ml @ 250 mls/hr Q24H IV Last administered on 12/20/16 20:39; Start 12/20/16 at 20:00 Vancomycin HCl 1 each 1X ONCE MC ; Start 12/21/16 at 19:30; Stop 12/21/16 at 19 :31 Gadobutrol (Gadavist) 7 mmol 1X ONCE IV Last administered on 12/19/16 19:16; Start 12/19/16 at 19:00; Stop 12/19/16 at 19:01; Status DC Gadobutrol (Gadavist) 7 mmol 1X ONCE IV Last administered on 12/19/16 19:16; Start 12/19/16 at 19:00; Stop 12/19/16 at 19:01; Status DC Oxycodone/ Acetaminophen (Percocet 10/325) 1 tab PRN Q4HRS PRN PO pain Last administered on 12/21/16 09:03; Start 12/19/16 at 21:00 Micafungin Sodium 100 mg/Dextrose 100 ml @ 100 mls/hr Q24H IV Last administered on 12/20/16 19:43; Start 12/20/16 at 19:00 Active Scripts Active Oxycodone-Acetaminophen 10-325 (Oxycodone Hcl/Acetaminophen) 1 Each Tablet 1 Tab PO PRN Q4HRS PRN Reported Doxycycline Hyclate 100 Mg Tablet 100 Mg PO BID Metoprolol Tartrate 25 Mg Tablet 25 Mg PO BID Eliquis (Apixaban) 5 Mg Tablet 10 Mg PO DAILY Gabapentin 300 Mg Capsule 300 Mg PO TID Xanax (Alprazolam) 1 Mg Tablet 1 Tab PO TID Colace (Docusate Sodium) 100 Mg Capsule 100 Mg PO PRN DAILY PRN Miralax (Polyethylene Glycol 3350) 17 Gm Powd.pack 1 Packet PO DAILY PRN Meclizine Hcl 25 Mg Tablet 1 Tab PO TID PRN Compazine (Prochlorperazine Maleate) 10 Mg Tablet 10 Mg PO 1X PRN PRN Ambien (Zolpidem Tartrate) 10 Mg Tablet 1 Tab PO QHS Paroxetine Hcl 30 Mg Tablet 2 Tab PO DAILY Simvastatin 40 Mg Tablet 1 Tab PO QHS Vitals/I & O Vital Sign - Last 24 Hours 12/20/16 12/20/16 12/20/16 12/20/16 18:03 19:00 20:06 20:38 Temp 98.4 98.4 Pulse 63 63 Resp 18 16 B/P (MAP) 124/73 (90) 124/73 Pulse Ox 95 O2 Delivery Room Air Room Air Room Air 12/20/16 12/20/16 12/21/16 12/21/16 23:00 23:34 00:34 03:00 Temp 98.5 98.5 Pulse 70 58 Resp 18 18 B/P (MAP) 133/82 (99) 122/78 (93) Pulse Ox 95 95 95 93 O2 Delivery Room Air Room Air Room Air Room Air 12/21/16 12/21/16 12/21/16 12/21/16 07:00 08:00 09:01 09:03 Temp 97.8 97.8 Pulse 64 64 Resp 18 18 B/P (MAP) 126/76 (93) 126/76 Pulse Ox 95 O2 Delivery Room Air Room Air Room Air Intake and Output 12/21/16 12/21/16 12/22/16 15:00 23:00 07:00 Intake Total 300 ml Balance 300 ml RADHIKA ZIEGLER MD Dec 21, 2016 11:09
[2016-12-21] MEDS ORDERED: DOCUSATE SODIUM 100 MG CAPSULE. PO PRN (11:15)
[2016-12-21] MEDS ORDERED: POLYETHYLENE GLYCOL 3350 17 GM PACKET. PO PRN (11:15)
[2016-12-21 15:00] VITALS: BP 123/68
--- NOTE | 2016-12-21 15:00 | PDOC ---
Infectious Disease Note Subjective Subjective c/o pain and drainage left lower leg wound ROS ROS GEN: Denies fevers, chills, sweats CV: Denies chest pain RESP: Denies shortness of air, cough GI: Denies n/v/d Vital Sign Vital Signs Vital Signs Date Time Temp Pulse Resp B/P (MAP) Pulse Ox O2 Delivery O2 Flow Rate FiO2 12/21/16 14:30 20 95 Room Air 12/21/16 11:00 97.8 75 117/63 (81) 97.8 Physical Exam PHYSICAL EXAM GENERAL: Propped up in bed NAD LUNGS: Clear HEART: S1 and S2 ABD: Soft, NT, obese EXT: BLE edema. LLE wound PEARL GLUE OPERATOR: Alert, oriented x 3, no focal neurologic deficit SKIN: No rash IV: ok Labs Lab Laboratory Tests Test 12/20/16 16:12 12/20/16 20:30 12/21/16 07:38 12/21/16 10:27 Glucose (Fingerstick) 92 mg/dL (70-99) 133 mg/dL (70-99) 81 mg/dL (70-99) 99 mg/dL (70-99) Micro BLOOD CULTURE Preliminary NO GROWTH AFTER 1 DAY Leg AEROBIC CULT Preliminary Preliminary report AEROBIC RES 1 Preliminary Pseudomonas species Heavy growth AEROBIC RES 2 Preliminary Enterococcus species Objective Assessment Chronic ulceration of the left lower extremity. PSA, enterococcus so far Peripheral vascular disease. Venous insufficiency. Coagulopathy, status post bilateral DVT/PE Type 2 diabetes. Plan Plan of Care vanc, cefepime and micafungin Debridement scheduled for Thursday Patient is declining ID services and would like primary to manage antibiotics D/w above with Dr. Cardona and Dr. Adhikari ID to sign off Patient seen and examined. Chart reviewed in detail. Case discussed with COUNTY SUPERVISOR. Agree with above plan. DANIELLE BRIONES APRN Dec 21, 2016 15:00 NITIN ANTONIO MD Dec 21, 2016 21:16
[2016-12-21] MEDS: VANCOMYCIN PER PHARMACY MC PRN ×2 (16:34→21:10)
[2016-12-21] MEDS: MORPHINE SULFATE 4 MG/ML DISP.SYRIN. IV PRN (17:17)
[2016-12-21 19:00] VITALS: BP 139/64
[2016-12-21] MEDS: MICAFUNGIN 100 MG in IV DEXTROSE 5% 100 ML IV SCH (19:43)
[2016-12-21] MEDS: VANCOMYCIN 1.75 GM in IV NORMAL SALINE 500ML BAG 500 ML IV SCH (20:00)
[2016-12-21] MEDS: ZOLPIDEM 5 MG TABLET. PO SCH (20:54)
[2016-12-21] MEDS: SIMVASTATIN 40 MG TABLET. PO SCH (20:54)
[2016-12-21 23:00] VITALS: BP 148/66
[2016-12-22 03:00] VITALS: BP 126/68
[2016-12-22] MEDS: CEFEPIME HCL 2 GM in IV NORMAL SALINE 100ML 100 ML IV SCH ×3 (06:01→20:37)
[2016-12-22] MEDS ORDERED: DEXAMETHASONE SOD PHOS 20 MG/5 ML VIAL. ONE (06:57)
[2016-12-22] MEDS ORDERED: PROPOFOL 20 ML IV ONE ×2 (06:57→08:02)
[2016-12-22] MEDS ORDERED: ONDANSETRON PF 4 MG/2 ML VIAL. ONE (06:57)
[2016-12-22] MEDS ORDERED: LIDOCAINE 2% PF Vial for OR 5 ML VIAL. ONE (06:57)
[2016-12-22] MEDS ORDERED: LIDOCAINE 1% PF 2 ML VIAL. ID PRN (07:00)
[2016-12-22] MEDS ORDERED: ONDANSETRON PF 4 MG/2 ML VIAL. IV PRN (07:00)
[2016-12-22] MEDS ORDERED: PROCHLORPERAZINE 10 MG/2 ML VIAL. IV PRN (07:00)
[2016-12-22] MEDS ORDERED: fentaNYL PF VIAL 100 MCG/2 ML VIAL IV PRN (07:00)
[2016-12-22] MEDS ORDERED: IV RINGERS,LACTATED 1000ML 1,000 ML IV SCH (07:00)
[2016-12-22] MEDS ORDERED: MORPHINE SULFATE 4 MG/ML DISP.SYRIN. IV PRN (07:00)
[2016-12-22] MEDS ORDERED: LIDOCAINE 1% 20 ML VIAL. ONE (07:16)
[2016-12-22] MEDS ORDERED: silver sulfADIAZINE 1% CREAM 25GM TUBE. TP ONE (07:16)
--- NOTE | 2016-12-22 07:18 | PDOC ---
Provider Note Provider Note She has a persistent left lower leg wound. She is to have debridement this morning. I discussed risks and benefits. She acknowledged and elected to proceed. ERLIN GONCALVES MD Dec 22, 2016 07:18
[2016-12-22] MEDS: INSULIN ASPART 300 UNITS/3 ML INSULN.PEN SQ SCH ×3 (08:00→16:58)
[2016-12-22] MEDS ORDERED: SEVOFLURANE 31 TO 60 MINUTES. IH ONE (08:01)
[2016-12-22] MEDS ORDERED: MORPHINE PF 5 MG/10 ML VIAL. ONE (08:02)
--- NOTE | 2016-12-22 08:18 | PDOC ---
BRIEF OPERATIVE NOTE Pre-Op Diagnosis Left lower leg venous stasis ulcer Obesity Post-Op Diagnosis same Procedure Performed Left lower leg debridement including skin and subcutaneous tissue Surgeon Susanna Safety Professional none Anesthesia Type: General Blood Loss 2ml Specimens Obtained n/a Findings left lower leg ulcers (11cm x 8cm x 0.4cm depth) and (5.5cm x 3.5cm x 0.3cm depth) Complications none ERLIN GONCALVES MD Dec 22, 2016 08:18
[2016-12-22] MEDS: fentaNYL PF VIAL 100 MCG/2 ML VIAL IV PRN ×2 (08:26→08:31)
[2016-12-22] MEDS: HYDROmorphone 2 MG/ML VIAL IV PRN ×4 (08:37→09:24)
[2016-12-22] MEDS ORDERED: VANCOMYCIN 1.75 GM in IV NORMAL SALINE 500ML BAG 500 ML IV SCH (09:00)
--- NOTE | 2016-12-22 09:00 | OP ---
DATE OF SURGERY: 12/22/2016 DATE OF SERVICE: 12/22/2016 PREOPERATIVE DIAGNOSES: 1. Left lower leg venous stasis ulcer. 2. Chronic venous insufficiency. 3. Obesity. POSTOPERATIVE DIAGNOSES: 1. Left lower leg venous stasis ulcer. 2. Chronic venous insufficiency. 3. Obesity. PROCEDURE: Excisional debridement of left lower leg ulcer including skin and subcutaneous tissue. SURGEON: Ayden Goncalves MD ANESTHESIA: General. INDICATIONS: The patient is a 51-year-old female with chronic venous insufficiency of her left leg with a recurrent ulcer. She presents for surgical debridement. FINDINGS: She had left lateral lower leg bilobed ulcers. These measured 11 x 8 cm and the more posterior one measured 5.5 x 3.5 cm. These extended down to deep subcutaneous tissue. All necrotic tissue was debrided. DESCRIPTION OF PROCEDURE: The patient was taken to the operating room and placed on the operating table. She underwent a general anesthetic. Her left lower extremity was prepped and draped in normal sterile fashion. A sharp curette was used to excise the necrotic tissue over the left lower leg ulcers. All nonviable tissue was excised down to a viable subcutaneous base. The wound was then copiously washed. There was good hemostasis. Moistened Aquacel Ag was placed over the wound. Wound measurements as noted above, 4 x 4s, Kerlix and a Coban dressing were applied. The patient tolerated the procedure well and there were no complications. ESTIMATED BLOOD LOSS: 2 mL. SPECIMEN: None. AYDEN GONCALVES MD DR: TIERA/myra JOB#: [id number] / [id number]
[2016-12-22] MEDS: ALPRAZolam 1 MG TABLET PO SCH ×3 (10:04→20:35)
[2016-12-22] MEDS: GABAPENTIN 300 MG CAPSULE. PO SCH ×3 (10:05→20:35)
[2016-12-22] MEDS: METOPROLOL TART IMMED RELEASE 25 MG TABLET. PO SCH ×2 (10:05→20:35)
[2016-12-22] MEDS: oxyCODONE/APAP 10/325 1 TAB TABLET PO PRN ×3 (10:06→20:13)
[2016-12-22] MEDS: PARoxetine 20 MG TABLET PO SCH (10:06)
[2016-12-22 11:00] VITALS: BP 102/37
--- NOTE | 2016-12-22 11:43 | PDOC ---
Infectious Disease Note Subjective Subjective c/o pain and drainage left lower leg wound ROS ROS GEN: Denies fevers, chills, sweats HEENT: Denies blurred vision, sore throat CV: Denies chest pain RESP: Denies shortness of air, cough GI: Denies n/v/d NEURO: Denies confusion, dizziness MSK: Denies weakness, joint pain/swelling Vital Sign Vital Signs Vital Signs Date Time Temp Pulse Resp B/P (MAP) Pulse Ox O2 Delivery O2 Flow Rate FiO2 12/22/16 10:06 20 Nasal Cannula 2.0 12/22/16 10:05 66 120/79 12/22/16 09:28 96 12/22/16 09:13 99.2 99.2 Physical Exam PHYSICAL EXAM GENERAL: NAD, Alert HEENT: PERRL, OC/OP NECK: Supple, no JVD, no LN LUNGS: Clear HEART: S1S2, no gallop, no murmur ABD: Soft, NT, no organomegaly, no rebound EXT: No edema, no cyanosis FASHION CONSULTANT SALES: Alert, oriented x 3, no focal neurologic deficit SKIN: No rash IV: ok Labs Lab Laboratory Tests Test 12/21/16 16:52 12/21/16 19:25 12/21/16 21:14 12/22/16 07:14 Glucose (Fingerstick) 135 mg/dL (70-99) 136 mg/dL (70-99) 79 mg/dL (70-99) Vancomycin Level Trough 5.2 mcg/mL (10.0-20.0) Vancomycin Last Dose Date Vancomycin Last Dose Time Test 12/22/16 08:20 12/22/16 11:35 Glucose (Fingerstick) 89 mg/dL (70-99) 126 mg/dL (70-99) Objective Assessment Chronic ulceration of the left lower extremity. PSA, enterococcus so far s/p Debridement Peripheral vascular disease. Venous insufficiency. Coagulopathy, status post bilateral DVT/PE Type 2 diabetes. Plan Plan of Care d/c vanc, and micafungin,, cont cefepime, supportive care off load PRESLEY SAUCEDO MD Dec 22, 2016 11:43
--- NOTE | 2016-12-22 11:46 | PDOC ---
PROGRESS NOTES Chief Complaint Chief Complaint Missy FLOREZ nonhealing ulcer ASSESSMENT AND PLAN: 1. Venous stasis leg ulcer: s/p excisional debridement of left lower leg ulcer today. on cefepime 1. DM2: well controlled don current regimen. HgbA1c pending 3. PVD: cont 2ary prevention meds 4. DVT/PE: recurrent; s/p IVC filter placement, on eliquis (on hold today for surgery) 5. HTN: well controlled on BB 6. HLD: on statin 7. Morbid obesity, BMI 42 8. Anxiety d/o NOS History of Present Illness History of Present Illness s/p debridement this AM. feels ok, pain controlled. worried about having to call her job to let them know she is hospitalized Vitals Vitals Vital Signs Date Time Temp Pulse Resp B/P (MAP) Pulse Ox O2 Delivery O2 Flow Rate FiO2 12/22/16 10:06 20 Nasal Cannula 2.0 12/22/16 10:05 66 120/79 12/22/16 09:28 96 12/22/16 09:13 99.2 99.2 Physical Exam General: Alert, Oriented X3, Cooperative, No acute distress Heart: Regular rate, No murmurs Lungs: Clear Abdomen: Normal bowel sounds, No tenderness Extremities: No clubbing, Other (L LE wrapped iin gauze, stretch bandages) Labs LABS Laboratory Tests Test 12/21/16 16:52 12/21/16 19:25 12/21/16 21:14 12/22/16 07:14 Glucose (Fingerstick) 135 mg/dL (70-99) 136 mg/dL (70-99) 79 mg/dL (70-99) Vancomycin Level Trough 5.2 mcg/mL (10.0-20.0) Vancomycin Last Dose Date Vancomycin Last Dose Time Test 12/22/16 08:20 12/22/16 11:35 Glucose (Fingerstick) 89 mg/dL (70-99) 126 mg/dL (70-99) MADHURI TORO MD Dec 22, 2016 11:46
[2016-12-22 15:02] VITALS: BP 100/52
[2016-12-22 19:00] VITALS: BP 103/48
[2016-12-22] MEDS: ZOLPIDEM 5 MG TABLET. PO SCH (20:35)
[2016-12-22] MEDS: SIMVASTATIN 40 MG TABLET. PO SCH (20:35)
[2016-12-22 23:00] VITALS: BP 104/47
[2016-12-23 03:15] VITALS: BP 104/50
[2016-12-23] MEDS: oxyCODONE/APAP 10/325 1 TAB TABLET PO PRN ×3 (04:45→15:08)
[2016-12-23] MEDS: CEFEPIME HCL 2 GM in IV NORMAL SALINE 100ML 100 ML IV SCH (04:45)
[2016-12-23 07:00] VITALS: BP 122/70
[2016-12-23] MEDS: INSULIN ASPART 300 UNITS/3 ML INSULN.PEN SQ SCH ×2 (08:16→11:31)
[2016-12-23] MEDS: METOPROLOL TART IMMED RELEASE 25 MG TABLET. PO SCH (08:19)
[2016-12-23] MEDS: ALPRAZolam 1 MG TABLET PO SCH ×2 (08:19→14:09)
[2016-12-23] MEDS: GABAPENTIN 300 MG CAPSULE. PO SCH ×2 (08:19→14:09)
[2016-12-23] MEDS: DOCUSATE SODIUM 100 MG CAPSULE. PO PRN (09:14)
[2016-12-23] MEDS: PARoxetine 20 MG TABLET PO SCH (09:15)
--- NOTE | 2016-12-23 09:33 | PDOC ---
Infectious Disease Note Subjective Subjective c/o pain and drainage left lower leg wound ROS ROS GEN: Denies fevers, chills, sweats HEENT: Denies blurred vision, sore throat CV: Denies chest pain RESP: Denies shortness of air, cough GI: Denies n/v/d NEURO: Denies confusion, dizziness MSK: Denies weakness, joint pain/swelling Vital Sign Vital Signs Vital Signs Date Time Temp Pulse Resp B/P (MAP) Pulse Ox O2 Delivery O2 Flow Rate FiO2 12/23/16 08:19 72 122/70 12/23/16 07:00 97.5 20 93 Room Air 97.5 12/23/16 05:45 2.0 Physical Exam PHYSICAL EXAM GENERAL: NAD, Alert HEENT: PERRL, OC/OP NECK: Supple, no JVD, no LN LUNGS: Clear HEART: S1S2, no gallop, no murmur ABD: Soft, NT, no organomegaly, no rebound EXT: No edema, no cyanosis PRICING CONSULTANT: Alert, oriented x 3, no focal neurologic deficit SKIN: No rash IV: ok Labs Lab Laboratory Tests Test 12/22/16 11:35 12/22/16 20:26 12/23/16 07:17 Glucose (Fingerstick) 126 mg/dL (70-99) 164 mg/dL (70-99) 116 mg/dL (70-99) Objective Assessment Chronic ulceration of the left lower extremity. PSA, enterococcus so far s/p Debridement Peripheral vascular disease. Venous insufficiency. Coagulopathy, status post bilateral DVT/PE Type 2 diabetes. Plan Plan of Care change cefepime, to po levaquin and amox supportive care PRESLEY SAUCEDO MD Dec 23, 2016 09:33
[2016-12-23] MEDS ORDERED: OXYC1TAB9 PO (10:41)
[2016-12-23] MEDS ORDERED: AMOX250C PO (10:41)
[2016-12-23 11:00] VITALS: BP 143/76
[2016-12-23] MEDS ORDERED: MULT1TAB52 PO (11:33)
[2016-12-23] MEDS ORDERED: ASCO500T3 PO (11:33)
[2016-12-23] MEDS: AMOXICILLIN 250 MG CAPSULE. PO SCH ×2 (12:01→15:04)
[2016-12-23] MEDS: MORPHINE SULFATE 4 MG/ML DISP.SYRIN. IV PRN ×2 (12:08→14:11)
[2016-12-23] MEDS ORDERED: LEVO750T31 PO (12:28)
--- NOTE | 2016-12-23 12:44 | PDOC ---
PROGRESS NOTES Subjective Subjective "I will need IV morphine before you can work on my wound." Objective Objective Vascular Surgery - POD#1 LLE ulcer debridement O: Getting ready to eat lunch. LLE: Dressing removed. Entire wound base with superficial slough material present that is easily wiped off. Non-odorous. Serous drainage on old dressing. Assessment/Plannin. Chronic left lower extremity lateral leg wound with necrotic tissue and localized cellulitis - POD#1 Debridement. Continue local wound care at [facility] and antibiotic therapy as directed by ID. 2. History of venous insufficiency and chronic swelling of the left leg. Encouraged to keep lower extremities elevated as much as possible and compression. 3. Ok to discharge home Vital Signs Date Time Temp Pulse Resp B/P (MAP) Pulse Ox O2 Delivery O2 Flow Rate FiO2 12/23/16 12:08 20 95 Room Air 2.0 12/23/16 11:00 97.7 62 143/76 (98) 97.7 Intake and Output 12/24/16 07:00 Intake Total 300 ml Balance 300 ml Intake Oral 300 ml Assessment Assessment Problems Medical Problems: (1) Non-pressure chronic ulcer of left calf with fat layer exposed Status: Acute (2) Peripheral vascular disease Status: Acute (3) Type 2 diabetes mellitus Status: Acute Comment Review of Relevant I have reviewed the following items claribel (where applicable) has been applied. Labs Laboratory Tests Test 12/21/16 16:52 12/21/16 19:25 12/21/16 21:14 12/22/16 07:14 Glucose (Fingerstick) 135 mg/dL (70-99) 136 mg/dL (70-99) 79 mg/dL (70-99) Vancomycin Level Trough 5.2 mcg/mL (10.0-20.0) Vancomycin Last Dose Date Vancomycin Last Dose Time Test 12/22/16 08:20 12/22/16 11:35 12/22/16 20:26 12/23/16 07:17 Glucose (Fingerstick) 89 mg/dL (70-99) 126 mg/dL (70-99) 164 mg/dL (70-99) 116 mg/dL (70-99) Test 12/23/16 10:54 Glucose (Fingerstick) 96 mg/dL (70-99) Laboratory Tests Test 12/22/16 20:26 12/23/16 07:12/23/16 10:54 Glucose (Fingerstick) 164 mg/dL (70-99) 116 mg/dL (70-99) 96 mg/dL (70-99) Microbiology 12/20/16 Blood Culture - Preliminary, Resulted NO GROWTH AFTER 3 DAYS 12/19/16 Gram Stain - Final, Complete Medications Current Medications Sodium Chloride 1,000 ml @ 100 mls/hr Q10H IV Last administered on 12/19/16 14:34; Start 12/19/16 at 13:33; Stop 12/19/16 at 23:32; Status DC Ondansetron HCl (Zofran) 4 mg PRN Q8HRS PRN IV NAUSEA/VOMITING; Start 12/19/16 at 14:45; Stop 12/20/16 at 14:44; Status DC Sodium Chloride 1,000 ml @ 100 mls/hr Q10H IV Last administered on 12/20/16 10:27; Start 12/19/16 at 14:45; Stop 12/20/16 at 14:44; Status DC Acetaminophen (Tylenol) 650 mg PRN Q4HRS PRN PO FEVER; Start 12/19/16 at 14:45 ; Stop 12/20/16 at 14:44; Status DC Morphine Sulfate 4 mg PRN Q2HR PRN IV PAIN Last administered on 12/23/16 12:08 ; Start 12/19/16 at 15:00 Morphine Sulfate 4 mg STK-MED ONCE .ROUTE ; Start 12/19/16 at 15:02; Stop at 15:03; Status DC Info (Do NOT chart on this placeholder) 1 each 1X ONCE MC ; Start 12/19/16 at 16:00; Stop 12/19/16 at 16:01; Status UNV Insulin Aspart (NovoLOG) 0-9 UNITS TIDWMEALS SQ ; Start 12/19/16 at 17:00 Dextrose (Dextrose 50%-Water Syringe) 12.5 gm PRN Q15MIN PRN IV SEE COMMENTS; Start 12/19/16 at 16:30 Alprazolam (Xanax) 1 mg TID PO Last administered on 12/23/16 08:19; Start at 17:00 Apixaban (Eliquis) 5 mg BID PO Last administered on 12/20/16 09:08; Start at 21:00; Stop 12/20/16 at 16:42; Status DC Docusate Sodium (Colace) 100 mg PRN DAILY PRN PO CONSTIPATION Last administered on 12/23/16 09:14; Start 12/19/16 at 16:30 Metoprolol Tartrate (Lopressor) 25 mg BID PO Last administered on 12/23/16 08: 19; Start 12/19/16 at 21:00 Polyethylene Glycol (miraLAX PACKET) 17 gm PRN DAILY PRN PO CONSTIPATION Last administered on 12/23/16 09:13; Start 12/19/16 at 16:30 Simvastatin (Zocor) 40 mg QHS PO Last administered on 12/22/16 20:35; Start at 21:00 Gabapentin (Neurontin) 300 mg TID PO Last administered on 12/23/16 08:19; Start 12/19/16 at 17:00 Meclizine HCl (Antivert) 25 mg PRN TID PRN PO DIZZINESS; Start 12/19/16 at 16: 30 Paroxetine HCl (Paxil) 60 mg DAILY PO Last administered on 12/23/16 09:15; Start 12/20/16 at 09:00 Prochlorperazine Maleate (Compazine) 10 mg PRN Q6HRS PRN PO NAUSEA; Start 12/19 at 16:30 Zolpidem Tartrate (Ambien) 5 mg QHS PO Last administered on 12/22/16 20:35; Start 12/19/16 at 21:00 Vancomycin HCl (Vanco Per Pharmacy) 1 each PRN DAILY PRN MC SEE COMMENTS Last administered on 12/21/16 21:10; Start 12/19/16 at 16:30; Stop 12/22/16 at 13:52 ; Status DC Vancomycin HCl 2 gm/Sodium Chloride 500 ml @ 250 mls/hr 1X ONCE IV Last administered on 12/19/16 21:37; Start 12/19/16 at 17:00; Stop 12/19/16 at 18:59 ; Status DC Cefepime HCl 2 gm/ Sodium Chloride 100 ml @ 200 mls/hr Q8HRS IV Last administered on 12/23/16 04:45; Start 12/19/16 at 17:00; Stop 12/23/16 at 09:34 ; Status DC Lorazepam (Ativan) 1 mg 1X ONCE IV Last administered on 12/19/16 17:28; Start 12/19/16 at 17:15; Stop 12/19/16 at 17:16; Status DC Vancomycin HCl 1.75 gm/Sodium Chloride 500 ml @ 250 mls/hr Q24H IV Last administered on 12/21/16 20:00; Start 12/20/16 at 20:00; Stop 12/21/16 at 23:00 ; Status DC Vancomycin HCl 1 each 1X ONCE MC ; Start 12/21/16 at 19:30; Stop 12/21/16 at 19 :31; Status DC Gadobutrol (Gadavist) 7 mmol 1X ONCE IV Last administered on 12/19/16 19:16; Start 12/19/16 at 19:00; Stop 12/19/16 at 19:01; Status DC Gadobutrol (Gadavist) 7 mmol 1X ONCE IV Last administered on 12/19/16 19:16; Start 12/19/16 at 19:00; Stop 12/19/16 at 19:01; Status DC Oxycodone/ Acetaminophen (Percocet 10/325) 1 tab PRN Q4HRS PRN PO pain Last administered on 12/23/16 09:14; Start 12/19/16 at 21:00 Micafungin Sodium 100 mg/Dextrose 100 ml @ 100 mls/hr Q24H IV Last administered on 12/21/16 19:43; Start 12/20/16 at 19:00; Stop 12/22/16 at 11:42 ; Status DC Docusate Sodium (Colace) 100 mg PRN DAILY PRN PO CONSTIPATION; Start 12/21/16 at 11:15; Status UNV Polyethylene Glycol (miraLAX PACKET) 17 gm PRN DAILY PRN PO CONSTIPATION; Start 12/21/16 at 11:15; Status UNV Vancomycin HCl 1.75 gm/Sodium Chloride 500 ml @ 250 mls/hr Q12H IV Last administered on 12/22/16 10:10; Start 12/22/16 at 09:00; Stop 12/22/16 at 11:42 ; Status DC Vancomycin HCl 1 each 1X ONCE MC ; Start 12/23/16 at 08:30; Stop 12/23/16 at 08 :30; Status DC Dexamethasone Sodium Phosphate (Decadron) 20 mg STK-MED ONCE .ROUTE ; Start at 06:57; Stop 12/22/16 at 06:58; Status DC Ondansetron HCl (Zofran) 4 mg STK-MED ONCE .ROUTE ; Start 12/22/16 at 06:57; Stop 12/22/16 at 06:58; Status DC Propofol 20 ml @ As Directed STK-MED ONCE IV ; Start 12/22/16 at 06:57; Stop at 06:58; Status DC Lidocaine HCl (Lidocaine Pf 2% Vial) 5 ml STK-MED ONCE .ROUTE ; Start 12/22/16 at 06:57; Stop 12/22/16 at 06:58; Status DC Ondansetron HCl (Zofran) 4 mg PRN Q6HRS PRN IV NAUSEA/VOMITING; Start 12/22/16 at 07:00; Stop 12/23/16 at 06:59; Status DC Fentanyl Citrate (Fentanyl 2ml Vial) 25 mcg PRN Q5MIN PRN IV MILD PAIN; Start 12/22/16 at 07:00; Stop 12/23/16 at 06:59; Status DC Fentanyl Citrate (Fentanyl 2ml Vial) 50 mcg PRN Q5MIN PRN IV MODERATE PAIN Last administered on 12/22/16 08:31; Start 12/22/16 at 07:00; Stop 12/23/16 at 06:59; Status DC Morphine Sulfate 1 mg PRN Q10MIN PRN IV SEVERE PAIN; Start 12/22/16 at 07:00; Stop 12/23/16 at 06:59; Status DC Ringer's Solution 1,000 ml @ 30 mls/hr Q24H IV Last administered on 12/22/16 07:18; Start 12/22/16 at 07:00; Stop 12/22/16 at 18:59; Status DC Lidocaine HCl (Xylocaine-Mpf 1% Vial) 2 ml 1X PRN PRN ID IV START; Start at 07:00; Stop 12/23/16 at 06:59; Status DC Hydromorphone HCl (Dilaudid) 0.5 mg PRN Q10MIN PRN IV SEV PAIN, Second choice Last administered on 12/22/16 09:24; Start 12/22/16 at 07:00; Stop 12/23/16 at 06:59; Status DC Prochlorperazine Edisylate (Compazine) 5 mg PACU PRN PRN IV NAUSEA, MRX1; Start 12/22/16 at 07:00; Stop 12/23/16 at 06:59; Status DC Silver Sulfadiazine (Silvadene) 25 eleuterio STK-MED ONCE TP ; Start 12/22/16 at 07:16 ; Stop 12/22/16 at 07:17; Status DC Lidocaine HCl 20 ml STK-MED ONCE .ROUTE ; Start 12/22/16 at 07:16; Stop at 07:17; Status DC Sevoflurane (Ultane) 30 ml STK-MED ONCE IH ; Start 12/22/16 at 08:01; Stop 12/22 at 08:02; Status DC Morphine Sulfate (Morphine Preservative Free) 5 mg STK-MED ONCE .ROUTE ; Start 12/22/16 at 08:02; Stop 12/22/16 at 08:03; Status DC Propofol 20 ml @ As Directed STK-MED ONCE IV ; Start 12/22/16 at 08:02; Stop at 08:03; Status DC Levofloxacin (Levaquin) 750 mg DAILY06 PO Last administered on 12/23/16 12:02 ; Start 12/23/16 at 10:00 Amoxicillin (Amoxil) 500 mg [id number] PO Last administered on 12/23/16 12:01; Start 12/23/16 at 10:00 Active Scripts Active Levaquin (Levofloxacin) 750 Mg Tablet 1 Tab PO DAILY Amoxicillin 250 Mg Capsule 500 Mg PO [id number] Oxycodone-Acetaminophen 10-325 (Oxycodone Hcl/Acetaminophen) 1 Each Tablet 1 Tab PO PRN Q4HRS PRN Reported Multivitamins (Multivitamin) 1 Each Tablet 1 Tab PO DAILY Ascorbic Acid 500 Mg Tablet 500 Mg PO BID Doxycycline Hyclate 100 Mg Tablet 100 Mg PO BID Metoprolol Tartrate 25 Mg Tablet 25 Mg PO BID Eliquis (Apixaban) 5 Mg Tablet 10 Mg PO DAILY Gabapentin 300 Mg Capsule 300 Mg PO TID Xanax (Alprazolam) 1 Mg Tablet 1 Tab PO TID Colace (Docusate Sodium) 100 Mg Capsule 100 Mg PO PRN DAILY PRN Miralax (Polyethylene Glycol 3350) 17 Gm Powd.pack 1 Packet PO DAILY PRN Meclizine Hcl 25 Mg Tablet 1 Tab PO TID PRN Compazine (Prochlorperazine Maleate) 10 Mg Tablet 10 Mg PO 1X PRN PRN Ambien (Zolpidem Tartrate) 10 Mg Tablet 1 Tab PO QHS Paroxetine Hcl 30 Mg Tablet 2 Tab PO DAILY Simvastatin 40 Mg Tablet 1 Tab PO QHS Vitals/I & O Vital Sign - Last 24 Hours 12/22/16 12/22/16 12/22/16 12/22/16 14:08 15:02 19:00 19:30 Temp 97.7 97.5 97.7 97.5 Pulse 60 70 Resp 20 20 20 B/P (MAP) 100/52 (68) 103/48 (66) Pulse Ox 91 91 93 O2 Delivery Nasal Cannula Room Air Room Air Room Air 12/22/16 12/22/16 12/22/16 12/23/16 20:13 20:35 23:00 03:15 Temp 97.5 97.5 97.5 97.5 Pulse 69 65 59 Resp 18 20 20 B/P (MAP) 110/59 104/47 (66) 104/50 (68) Pulse Ox 93 96 93 O2 Delivery Room Air Room Air Room Air O2 Flow Rate 2.0 12/23/16 12/23/16 12/23/16 12/23/16 04:45 07:00 08:19 09:14 Temp 97.5 97.5 Pulse 58 72 Resp 18 20 20 B/P (MAP) 122/70 (87) 122/70 Pulse Ox 93 93 93 O2 Delivery Room Air Room Air Room Air O2 Flow Rate 2.0 12/23/16 12/23/16 12/23/16 10:14 11:00 12:08 Temp 97.7 97.7 Pulse 62 Resp 20 18 20 B/P (MAP) 143/76 (98) Pulse Ox 95 95 95 O2 Delivery Room Air Room Air Room Air O2 Flow Rate 2.0 2.0 Intake and Output 12/23/16 12/23/16 12/24/16 15:00 23:00 07:00 Intake Total 300 ml Balance 300 ml ISABELL CORTES APRN Dec 23, 2016 12:44
--- NOTE | 2016-12-25 02:16 | DS ---
DATE OF DISCHARGE: 12/23/2016 CHIEF COMPLAINT: Left lower extremity nonhealing ulcer. HOSPITAL COURSE: The patient is a 51-year-old woman who presented to the hospital with recurrent venous stasis leg ulcers on her left lower extremity. She was actually taken to the OR by Dr. Ortiz on 12/22/2016 for excisional debridement of the left lower leg. She was initially started on cefepime, which later was changed to p.o. Levaquin and amoxicillin by ID service. Her other chronic medical issues did not pose any complications. Her home medications were continued. PHYSICAL EXAM: VS: stable GEN: A&O, NAD CV: RRR PULM: clear to auscultation EXTR: L LE in gauze with pressure wrap DISCHARGE DIAGNOSES: Left lower extremity venous stasis ulcer, status post debridement on 12/22/2016. DISCHARGE DISPOSITION: To home with services. DISCHARGE CONDITION: Improved. DISCHARGE MEDICATIONS: Please refer to MAR. DISCHARGE INSTRUCTIONS: The patient will follow up with PCP and wound clinic DOMINIC. MADHURI TORO MD DR: ANANT/nts JOB#: [id number] / [id number] JESSICA Kerr MD
== END 2016-12-23 15:36 | disposition home or self-care (01) | DRG 264 ==
LOC: ER 12:40 → 5 NORTH 13:38
PROVIDERS: ADMIT Internal Medicine; ATTEND Internal Medicine
PROC: 0JBP0ZZ Excision of Left Lower Leg Subcutaneous Tissue and Fascia, Open Approach (ICD-10-PCS; principal; 2016-12-22 07:30)
DX: E11.51 Type 2 diabetes mellitus with diabetic peripheral angiopathy without gangrene (principal); D68.9 Coagulation defect, unspecified; E11.622 Type 2 diabetes mellitus with other skin ulcer; L97.222 Non-pressure chronic ulcer of left calf with fat layer exposed; L03.116 Cellulitis of left lower limb; L97.929 Non-pressure chronic ulcer of unspecified part of left lower leg with unspecified severity; Z68.41 Body mass index [BMI] 40.0-44.9, adult; E66.01 Morbid (severe) obesity due to excess calories; W01.0XXA Fall on same level from slipping, tripping and stumbling without subsequent striking against object, initial encounter; E78.00 Pure hypercholesterolemia, unspecified; E78.5 Hyperlipidemia, unspecified; F41.1 Generalized anxiety disorder; I10 Essential (primary) hypertension; I87.2 Venous insufficiency (chronic) (peripheral); I87.8 Other specified disorders of veins; F32.9 Major depressive disorder, single episode, unspecified; I83.029 Varicose veins of left lower extremity with ulcer of unspecified site; L98.499 Non-pressure chronic ulcer of skin of other sites with unspecified severity; M79.89 Other specified soft tissue disorders; Z79.01 Long term (current) use of anticoagulants; Z82.49 Family history of ischemic heart disease and other diseases of the circulatory system; Z86.14 Personal history of Methicillin resistant Staphylococcus aureus infection; Z86.711 Personal history of pulmonary embolism; Z86.718 Personal history of other venous thrombosis and embolism; Z90.49 Acquired absence of other specified parts of digestive tract; Z90.3 Acquired absence of stomach [part of]; Z79.4 Long term (current) use of insulin
CPT/HCPCS: 36415; 73720; 80048; 80053; 80202; 82962; 83036; 85025; 87040; 87071; 87075; 87186; 87205; 87641; A9585; J0692; J1100; J1170; J1815; J2060; J2248; J2270; J2405; J2704; J3010; J3370; J7030; J7040; J7120; 99285-25; J2001

== ENCOUNTER → 2016-12-19 | Outpatient (CLI) | payer SELFPAY ==
[2016-08-06 14:39] VITALS: BP 145/84
[~2016-12-19] MED LIST changes: +AMOX250C PO; +APIX5TAB PO; +ASCO500T3 PO; +DOXY100T PO; +METO25TA4 PO; +MULT1TAB52 PO
== END | disposition home or self-care (01) ==
LOC: PMGWOUND 11:02
PROVIDERS: ATTEND Preventive Medicine Undersea and Hyperbaric Medicine
DX: I87.312 Chronic venous hypertension (idiopathic) with ulcer of left lower extremity (principal); L97.822 Non-pressure chronic ulcer of other part of left lower leg with fat layer exposed; F41.9 Anxiety disorder, unspecified; E78.5 Hyperlipidemia, unspecified; F32.9 Major depressive disorder, single episode, unspecified; E66.01 Morbid (severe) obesity due to excess calories; M86.8X8 Other osteomyelitis, other site; E11.51 Type 2 diabetes mellitus with diabetic peripheral angiopathy without gangrene; Z72.89 Other problems related to lifestyle; Z68.42 Body mass index [BMI] 45.0-49.9, adult; Z86.14 Personal history of Methicillin resistant Staphylococcus aureus infection; Z87.891 Personal history of nicotine dependence; Z86.718 Personal history of other venous thrombosis and embolism; Z86.711 Personal history of pulmonary embolism
CPT/HCPCS: 97597; 97598

== ENCOUNTER → 2017-01-02 | Outpatient (CLI) | payer SELFPAY ==
[2016-12-23 11:00] VITALS: BP 143/76
[~2017-01-02] MED LIST changes: +AMOX250C PO; +APIX5TAB PO; +ASCO500T3 PO; +DOXY100T PO; +HYDR-971 PO; +METO25TA4 PO; +MULT1TAB52 PO
== END | disposition home or self-care (01) ==
LOC: PMGWOUND 10:31
PROVIDERS: ATTEND Preventive Medicine Undersea and Hyperbaric Medicine
DX: E11.622 Type 2 diabetes mellitus with other skin ulcer (principal); I87.312 Chronic venous hypertension (idiopathic) with ulcer of left lower extremity; L97.821 Non-pressure chronic ulcer of other part of left lower leg limited to breakdown of skin; L03.116 Cellulitis of left lower limb; E11.51 Type 2 diabetes mellitus with diabetic peripheral angiopathy without gangrene; Z86.718 Personal history of other venous thrombosis and embolism; Z86.711 Personal history of pulmonary embolism; F41.9 Anxiety disorder, unspecified; F32.9 Major depressive disorder, single episode, unspecified; E78.5 Hyperlipidemia, unspecified; Z87.891 Personal history of nicotine dependence
CPT/HCPCS: 99213